=== PATIENT | female | born 1975 | race Caucasian/White ===

== ENCOUNTER → 2017-12-18 | Outpatient (CLI) | payer OTHER ==
--- NOTE | 2017-12-18 09:05 | MM ---
Reason for exam: clinical finding. History: Patient is postmenopausal. Family history of breast cancer in grandmother. Saline implants in both breasts, 2011. Indicated problem(s): pain in the right breast. Physical Findings: Nurse did not find any significant physical abnormalities on exam. MG 3D Diag Mammo Imp W/Cad VERO Bilateral CC, MLO, and ID view(s) were taken. There are scattered fibroglandular densities. No suspicious abnormality. These results were verbally communicated with the patient and result sheet given to the patient on 12/18/17. ASSESSMENT: Negative, BI-RAD 1 RECOMMENDATION: Routine screening mammogram of both breasts in 1 year. Manage patient on a clinical basis.
--- NOTE | 2017-12-18 09:07 | USB ---
Reason for exam: clinical finding. History: Patient is postmenopausal. Family history of breast cancer in grandmother. Saline implants in both breasts, 2011. Indicated problem(s): pain in the right breast. US Breast RT Right breast ultrasound includes all four quadrants, the retroareolar region and axilla. Finding demonstrates no cystic or solid lesion seen greater than 0.50cm. No solid or cystic mass. No suspicious sonographic finding. These results were verbally communicated with the patient and result sheet given to the patient on 12/18/17. ASSESSMENT: Negative, BI-RAD 1 RECOMMENDATION: Routine screening mammogram of both breasts in 1 year. Manage patient on a clinical basis.
== END | disposition home or self-care (01) ==
LOC: RADMAMWWP 07:31
PROVIDERS: ATTEND Family Medicine
DX: N64.4 Mastodynia (principal); N63.10 Unspecified lump in the right breast, unspecified quadrant; Z98.82 Breast implant status
CPT/HCPCS: 77066; 76641; G0279

== ENCOUNTER 2019-08-23 14:13 | Emergency (ER) | payer OTHER ==
[2019-08-23 14:20] VITALS: TEMP 97.9
[2019-08-23] MEDS ORDERED: guaiFENesin-Coden 100-10MG/5ML 10 ML CUP PO STA (14:32)
[2019-08-23] MEDS ORDERED: SODIUM CHLORIDE 0.9% 2,000 ML IV STA (14:32)
[2019-08-23 14:59] LABS: Appearance,Urine Cloudy (Clear); Bacteria,Urine Rare /hpf; Bilirubin,Urine Negative (Negative); Blood,Urine Moderate (Negative); Color,Urine Yellow; Glucose,Urine (UA) Negative (Negative); Hyaline Casts,Urine 1 /lpf (0-2); Ketones,Urine Negative (Negative); Leukocyte Esterase,Urine Negative (Negative); Mucus,Urine Rare /hpf; Nitrite,Urine Negative (Negative); PH, Urine 5.5 (5.0-8.0); Protein,Urine 2+ (Negative); RBC,Urine 7 /hpf (0-5); Specific Gravity,Urine 1.027 (1.001-1.035); Squamous Epithelial Cell,Urine 4 /hpf (0-4); Urobilinogen,Urine <2.0 mg/dL (<2.0)
--- NOTE | 2019-08-23 15:04 | XR ---
EXAMINATION TYPE: XR chest 2V DATE OF EXAM: 08/23/2019 COMPARISON: 11/08/2008 HISTORY: Cough. Possible renal infection. TECHNIQUE: Frontal and lateral views of the chest are obtained. FINDINGS: Very mild interstitial prominence. There is no focal air space opacity, pleural effusion, or pneumothorax seen. The cardiac silhouette size is within normal limits. The osseous structures are intact. Right lower lobe nodular densities are compatible with granulomas on the prior CT of 05/18. Cholecystectomy clips are noted. IMPRESSION: Mild diffuse interstitial prominence can be seen with early interstitial pulmonary edema , atypical pneumonia or the setting of bronchitis.
[2019-08-23 15:05] VITALS: BP 122/91; PULSE 105; RESP 16
[2019-08-23 15:06] LABS: ALT 85 U/L (9-52); AST 85 U/L (14-36); African American GFR (CKD) >90 (>60 ml/min/1.73 sqM); Alkaline Phosphatase 109 U/L (38-126); Amylase 57 U/L (30-110); Anion Gap 9 mmol/L; Blood Urea Nitrogen 9 mg/dL (7-17); Carbon Dioxide 27 mmol/L (22-30); Chloride 104 mmol/L (98-107); Glucose 155 mg/dL (74-99); Non-African American GFR(CKD) >90 (>60 ml/min/1.73 sqM); Potassium 4.1 mmol/L (3.5-5.1); Sodium 140 mmol/L (137-145); Total Bilirubin 0.5 mg/dL (0.2-1.3); Total Protein 7.1 g/dL (6.3-8.2)
[2019-08-23 15:14] LABS: Basophils # (A) 0.2 k/uL (0-0.2); Basophils % (A) 3 %; Eosinophils # (A) 0.1 k/uL (0-0.7); Eosinophils % (A) 1 %; HCT 42.7 % (34.0-46.0); HGB 14.6 gm/dL (11.4-16.0); Lymphocytes # (A) 1.1 k/uL (1.0-4.8); Lymphocytes % (A) 17 %; MCH 30.6 pg (25.0-35.0); MCHC 34.2 g/dL (31.0-37.0); MCV 89.5 fL (80.0-100.0); Mean Platelet Volume 8.1; Monocytes # (A) 0.5 k/uL (0-1.0); Monocytes % (A) 8 %; Neutrophils # (A) 4.6 k/uL (1.3-7.7); Neutrophils % (A) 69 %; Platelet Count 103 k/uL (150-450); RBC 4.78 m/uL (3.80-5.40); RDW 13.1 % (11.5-15.5); WBC 6.7 k/uL (3.8-10.6)
--- NOTE | 2019-08-23 15:26 | ED ---
Abdominal Pain HPI - General Chief Complaint: Abdominal Pain Stated Complaint: possible kidney failure Time Seen by Provider: 08/23/19 14:22 Source: patient, RN notes reviewed Mode of arrival: ambulatory Limitations: no limitations - History of Present Illness Initial Comments: 43-year-old female presents emergency Department chief complaint of generalized not feeling well. She states that she's had a cough and cold over the last week or so. Patient states that her cough is productive. Patient states she just does not feel well. Patient presented to her PCP who performed a urinalysis because she was having bilateral flank pain from coughing they felt that her urine was very foamy, dark and was concerned about her kidney function. Patient was sent here for further evaluation. Patient denies any current nausea vomiting diarrhea constipation. Patient states her worst symptom is cough. - Related Data Previous Rx's Medication Instructions Recorded Azithromycin [Zithromax Z-pack] 0 mg PO DIRECTED #1 pack 08/23/19 predniSONE 50 mg PO DAILY #5 tab 08/23/19 Allergies Allergy/AdvReac Type Severity Reaction Status Date / Time cefaclor [From Ceclor] Allergy Anaphylaxis Verified 08/23/19 14:21 celecoxib [From Celebrex] Allergy Anaphylaxis Verified 08/23/19 14:21 Review of Systems ROS Statement: Those systems with pertinent positive or pertinent negative responses have been documented in the HPI. ROS Other: All systems not noted in ROS Statement are negative. Past Medical History Past Medical History: Diabetes Mellitus History of Any Multi-Drug Resistant Organisms: None Reported Past Surgical History: Cholecystectomy, Hysterectomy, Orthopedic Surgery Past Psychological History: No Psychological Hx Reported Smoking Status: Current every day smoker Past Alcohol Use History: None Reported, Occasional Past Drug Use History: Marijuana General Exam Limitations: no limitations General appearance: alert, in no apparent distress Head exam: Present: atraumatic, normocephalic, normal inspection Eye exam: Present: normal appearance, PERRL, EOMI. Absent: scleral icterus, conjunctival injection, periorbital swelling ENT exam: Present: normal exam, normal oropharynx, mucous membranes moist, TM's normal bilaterally Neck exam: Present: normal inspection, full ROM. Absent: tenderness, meningismus, lymphadenopathy Respiratory exam: Present: rhonchi (Left lower base). Absent: normal lung sounds bilaterally, respiratory distress, wheezes, rales, stridor Cardiovascular Exam: Present: normal rhythm, tachycardia, normal heart sounds. Absent: systolic murmur, diastolic murmur, rubs, gallop, clicks Back exam: Absent: CVA tenderness (R), CVA tenderness (L) Neurological exam: Present: alert, oriented X3, CN II-XII intact Skin exam: Present: warm, dry, intact, normal color. Absent: rash Course Vital Signs 08/23/19 08/23/19 14:18 15:04 Temperature 97.9 F Pulse Rate 114 H 105 H Respiratory 20 16 Rate Blood Pressure 118/80 122/91 O2 Sat by Pulse 99 100 Oximetry Medical Decision Making - Medical Decision Making 43-year-old female presented for cough congestion just shows atypical more respiratory bronchitis. Patient will be started on antibiotics and, steroids. Patient had some dark urine though there no major abnormality other than mild proteinuria. She is advised that she's had this recheck she'll increase her fluid intake and return for any worsening symptoms. - Lab Data Result diagrams: 08/23/19 14:46 08/23/19 14:46 Lab Results 08/23/19 08/23/19 08/23/19 Range/Units 14:46 14:46 14:46 WBC 6.7 (3.8-10.6) k/uL RBC 4.78 (3.80-5.40) m/uL Hgb 14.6 (11.4-16.0) gm/dL Hct 42.7 (34.0-46.0) % MCV 89.5 (80.0-100.0) fL MCH 30.6 (25.0-35.0) pg MCHC 34.2 (31.0-37.0) g/dL RDW 13.1 (11.5-15.5) % Plt Count 103 L (150-450) k/uL Neutrophils % 69 % Lymphocytes % 17 % Monocytes % 8 % Eosinophils % 1 % Basophils % 3 % Neutrophils # 4.6 (1.3-7.7) k/uL Lymphocytes # 1.1 (1.0-4.8) k/uL Monocytes # 0.5 (0-1.0) k/uL Eosinophils # 0.1 (0-0.7) k/uL Basophils # 0.2 (0-0.2) k/uL Sodium 140 (137-145) mmol/L Potassium 4.1 (3.5-5.1) mmol/L Chloride 104 (98-107) mmol/L Carbon Dioxide 27 (22-30) mmol/L Anion Gap 9 mmol/L BUN 9 (7-17) mg/dL Creatinine 0.59 (0.52-1.04) mg/dL Est GFR (CKD-EPI)AfAm >90 (>60 ml/min/1.73 sqM) Est GFR (CKD-EPI)NonAf >90 (>60 ml/min/1.73 sqM) Glucose 155 H (74-99) mg/dL Calcium 9.0 (8.4-10.2) mg/dL Total Bilirubin 0.5 (0.2-1.3) mg/dL AST 85 H (14-36) U/L ALT 85 H (9-52) U/L Alkaline Phosphatase 109 (38-126) U/L Total Protein 7.1 (6.3-8.2) g/dL Albumin 4.0 (3.5-5.0) g/dL Amylase 57 (30-110) U/L Lipase 327 H (23-300) U/L Urine Color Yellow Urine Appearance Cloudy H (Clear) Urine pH 5.5 (5.0-8.0) Ur Specific [place] 1.027 (1.001-1.035) Urine Protein 2+ H (Negative) Urine Glucose (UA) Negative (Negative) Urine Ketones Negative (Negative) Urine Blood Moderate H (Negative) Urine Nitrite Negative (Negative) Urine Bilirubin Negative (Negative) Urine Urobilinogen <2.0 (<2.0) mg/dL Ur Leukocyte Esterase Negative (Negative) Urine RBC 7 H (0-5) /hpf Urine WBC 3 (0-5) /hpf Ur Squamous Epith Cells 4 (0-4) /hpf Urine Bacteria Rare H (None) /hpf Hyaline Casts 1 (0-2) /lpf Urine Mucus Rare H (None) /hpf Disposition Clinical Impression: Pneumonia, Proteinuria Disposition: HOME SELF-CARE Condition: Stable Instructions (If sedation given, give patient instructions): Pneumonia (ED) Additional Instructions: Please return to the Emergency Department if symptoms worsen or any other concerns. Prescriptions: predniSONE 50 mg PO DAILY #5 tab Azithromycin [Zithromax Z-pack] 0 mg PO DIRECTED #1 pack Is patient prescribed a controlled substance at d/c from ED?: No Referrals: Phil Arambula Jr, [Primary Care Provider] - 1-2 days Time of Disposition: 15:40
== END 2019-08-23 16:10 | disposition home or self-care (01) ==
LOC: EC 14:13
DX: J18.9 Pneumonia, unspecified organism (principal); R80.9 Proteinuria, unspecified; E11.9 Type 2 diabetes mellitus without complications; F17.200 Nicotine dependence, unspecified, uncomplicated; Z88.6 Allergy status to analgesic agent; Z90.49 Acquired absence of other specified parts of digestive tract
CPT/HCPCS: 36415; 71046; 80053; 81001; 82150; 83690; 85025; 96360; 99284

== ENCOUNTER 2019-09-03 11:47 | Emergency (ER) | payer OTHER ==
[2019-09-03 11:50] VITALS: TEMP 98.3
--- NOTE | 2019-09-03 12:18 | ED ---
General Adult HPI - General Chief complaint: Shortness of Breath Stated complaint: Chest pain, Poss PE Time Seen by Provider: 09/03/19 12:00 Source: patient, RN notes reviewed Mode of arrival: ambulatory Limitations: no limitations - History of Present Illness Initial comments: 43-year-old female with a past medical history of diabetes presents to the e mergency department for chief commands shortness of breath. Patient states she woke up this morning with shortness of breath and pain on the left side of her chest radiating to her shoulder. Patient states it is painful to take a deep breath. Patient has had a history of PEs in the past secondary to trauma. Patient denies any recent trauma. She does admit to car ride to [place] which is about 2 hours. Patient returned yesterday. Patient denies any previous history of clotting disorders. Patient has no other complaints at this time including abdominal pain, nausea or vomiting, headache, or visual changes. - Related Data Home Medications Medication Instructions Recorded Confirmed DULoxetine HCL [Cymbalta] 30 mg PO BID 09/03/19 09/03/19 HYDROcodone/APAP 10-325MG [[place] 1 tab PO TID PRN 09/03/19 09/03/19 10-325] Ibuprofen [Motrin] 800 mg PO TID PRN 09/03/19 09/03/19 Linagliptin [Tradjenta] 5 mg PO DAILY 09/03/19 09/03/19 Lisinopril [Zestril] 5 mg PO DAILY 09/03/19 09/03/19 metFORMIN HCL 1,000 mg PO BID 09/03/19 09/03/19 Previous Rx's Medication Instructions Recorded Levofloxacin [Levaquin] 750 mg PO DAILY 5 Days #5 tab 09/03/19 Allergies Allergy/AdvReac Type Severity Reaction Status Date / Time cefaclor [From Ceclor] Allergy Anaphylaxis Verified 09/03/19 11:59 celecoxib [From Celebrex] Allergy Anaphylaxis Verified 09/03/19 11:59 Review of Systems ROS Statement: Those systems with pertinent positive or pertinent negative responses have been documented in the HPI. ROS Other: All systems not noted in ROS Statement are negative. Past Medical History Past Medical History: Diabetes Mellitus History of Any Multi-Drug Resistant Organisms: None Reported Past Surgical History: Cholecystectomy, Hysterectomy, Orthopedic Surgery Past Psychological History: No Psychological Hx Reported Smoking Status: Current every day smoker Past Alcohol Use History: None Reported, Occasional Past Drug Use History: Marijuana General Exam Limitations: no limitations General appearance: alert, in no apparent distress Head exam: Present: atraumatic, normocephalic, normal inspection Eye exam: Present: normal appearance, PERRL, EOMI. Absent: scleral icterus, conjunctival injection, periorbital swelling ENT exam: Present: normal exam, mucous membranes moist Neck exam: Present: normal inspection, full ROM. Absent: tenderness, meningismus, lymphadenopathy Respiratory exam: Present: normal lung sounds bilaterally. Absent: respiratory distress, wheezes, rales, rhonchi, stridor Cardiovascular Exam: Present: regular rate, normal rhythm, normal heart sounds. Absent: systolic murmur, diastolic murmur, rubs, gallop, clicks GI/Abdominal exam: Present: soft, normal bowel sounds. Absent: distended, tenderness, guarding, rebound, rigid Course Vital Signs 09/03/19 09/03/19 09/03/19 11:47 13:20 13:26 Temperature 98.3 F Pulse Rate 107 H 87 94 Respiratory 24 20 Rate Blood Pressure 151/95 162/91 O2 Sat by Pulse 97 97 Oximetry 09/03/19 09/03/19 13:33 14:48 Temperature Pulse Rate 96 89 Respiratory 16 Rate Blood Pressure 159/87 O2 Sat by Pulse 96 Oximetry EKG Findings - EKG Comments: EKG Findings:: Normal sinus rhythm, ventricular rate 96, IA interval 132, QTc 427 Medical Decision Making - Medical Decision Making Vitals are stable. Patient is 97% on room air she was initially mildly tachycardic with a heart rate of 107. Patient is complaining of pain with coughing and deep breathing. CBC shows mild leukocytosis. CMP shows a glucose of 377, otherwise unremarkable. Patient was given fluids and insulin for this and this did improve. CT was ordered to rule out PE. This showed no definite pulmonary embolism. There is a focal patchy density superior segment left lower lobe which is a possible pneumonia. Patient was treated outpatient for pneumonia with azithromycin. It is possible that CT results do not reflect patient's improvement of pneumonia given a can take several weeks for pneumonia to resolve on imaging studies. Patient states her cough has improved and she has not had any fevers. Patient's pain likely secondary to pleurisy from pneumonia. Patient was given pain medications and feels much better, only has pain when coughing at this time. Patient will be put on Levaquin. She'll follow up with primary care and return if she has any worsening symptoms. - Lab Data Result diagrams: 09/03/19 12:18 12 12:18 Lab Results 09/03/19 09/03/19 09/03/19 Range/Units 12:18 12:18 12:18 WBC 12.2 H (3.8-10.6) k/uL RBC 4.57 (3.80-5.40) m/uL Hgb 13.8 (11.4-16.0) gm/dL Hct 41.4 (34.0-46.0) % MCV 90.6 (80.0-100.0) fL MCH 30.1 (25.0-35.0) pg MCHC 33.2 (31.0-37.0) g/dL RDW 13.2 (11.5-15.5) % Plt Count 204 (150-450) k/uL Neutrophils % 72 % Lymphocytes % 22 % Monocytes % 3 % Eosinophils % 1 % Basophils % 0 % Neutrophils # 8.8 H (1.3-7.7) k/uL Lymphocytes # 2.7 (1.0-4.8) k/uL Monocytes # 0.4 (0-1.0) k/uL Eosinophils # 0.1 (0-0.7) k/uL Basophils # 0.0 (0-0.2) k/uL PT 9.6 (9.0-12.0) sec INR 0.9 (<1.2) APTT 20.8 L (22.0-30.0) sec Sodium 138 (137-145) mmol/L Potassium 3.8 (3.5-5.1) mmol/L Chloride 106 (98-107) mmol/L Carbon Dioxide 23 (22-30) mmol/L Anion Gap 9 mmol/L BUN 10 (7-17) mg/dL Creatinine 0.46 L (0.52-1.04) mg/dL Est GFR (CKD-EPI)AfAm >90 (>60 ml/min/1.73 sqM) Est GFR (CKD-EPI)NonAf >90 (>60 ml/min/1.73 sqM) Glucose 377 H (74-99) mg/dL POC Glucose (mg/dL) (75-99) mg/dL POC Glu Rink[place] ID Calcium 9.2 (8.4-10.2) mg/dL Magnesium 1.6 (1.6-2.3) mg/dL Total Bilirubin 0.8 (0.2-1.3) mg/dL AST 46 H (14-36) U/L ALT 56 H (9-52) U/L Alkaline Phosphatase 85 (38-126) U/L Troponin I (0.000-0.034) ng/mL NT-Pro-B Natriuret Pep pg/mL Total Protein 6.5 (6.3-8.2) g/dL Albumin 3.8 (3.5-5.0) g/dL 09/03/19 09/03/19 09/03/19 Range/Units 12:18 12:18 14:46 WBC (3.8-10.6) k/uL RBC (3.80-5.40) m/uL Hgb (11.4-16.0) gm/dL Hct (34.0-46.0) % MCV (80.0-100.0) fL MCH (25.0-35.0) pg MCHC (31.0-37.0) g/dL RDW (11.5-15.5) % Plt Count (150-450) k/uL Neutrophils % % Lymphocytes % % Monocytes % % Eosinophils % % Basophils % % Neutrophils # (1.3-7.7) k/uL Lymphocytes # (1.0-4.8) k/uL Monocytes # (0-1.0) k/uL Eosinophils # (0-0.7) k/uL Basophils # (0-0.2) k/uL PT (9.0-12.0) sec INR (<1.2) APTT (22.0-30.0) sec Sodium (137-145) mmol/L Potassium (3.5-5.1) mmol/L Chloride (98-107) mmol/L Carbon Dioxide (22-30) mmol/L Anion Gap mmol/L BUN (7-17) mg/dL Creatinine (0.52-1.04) mg/dL Est GFR (CKD-EPI)AfAm (>60 ml/min/1.73 sqM) Est GFR (CKD-EPI)NonAf (>60 ml/min/1.73 sqM) Glucose (74-99) mg/dL POC Glucose (mg/dL) 224 H (75-99) mg/dL POC Glu Rinkman ID Christy [place] Calcium (8.4-10.2) mg/dL Magnesium (1.6-2.3) mg/dL Total Bilirubin (0.2-1.3) mg/dL AST (14-36) U/L ALT (9-52) U/L Alkaline Phosphatase (38-126) U/L Troponin I <0.012 (0.000-0.034) ng/mL NT-Pro-B Natriuret Pep 239 pg/mL Total Protein (6.3-8.2) g/dL Albumin (3.5-5.0) g/dL Disposition Clinical Impression: Atypical chest pain, Hyperglycemia Disposition: HOME SELF-CARE Condition: Good Instructions (If sedation given, give patient instructions): Pneumonia (ED) Additional Instructions: Take Levaquin as directed. Take Motrin for pain. Pain is severe take Tylenol 3. Please follow up with Dr. Martinez tomorrow. Make sure to talk with Dr. Martinez about CT results as well as high blood sugar. If you have any worsening symptoms return to the emergency department. Prescriptions: Levofloxacin [Levaquin] 750 mg PO DAILY 5 Days #5 tab Is patient prescribed a controlled substance at d/c from ED?: No Referrals: Phil Arambula Jr, DO [Primary Care Provider] - 1-2 days Time of Disposition: 14:57
[2019-09-03] MEDS ORDERED: SODIUM CHLORIDE 0.9% 500 ML 500 ML IV STA ×2 (12:21→12:59)
[2019-09-03 12:42] LABS: Basophils % (A) 0 %; Eosinophils # (A) 0.1 k/uL (0-0.7); Eosinophils % (A) 1 %; HCT 41.4 % (34.0-46.0); HGB 13.8 gm/dL (11.4-16.0); Lymphocytes # (A) 2.7 k/uL (1.0-4.8); Lymphocytes % (A) 22 %; MCH 30.1 pg (25.0-35.0); MCHC 33.2 g/dL (31.0-37.0); MCV 90.6 fL (80.0-100.0); Mean Platelet Volume 7.9; Monocytes # (A) 0.4 k/uL (0-1.0); Monocytes % (A) 3 %; Neutrophils # (A) 8.8 k/uL (1.3-7.7); Neutrophils % (A) 72 %; Platelet Count 204 k/uL (150-450); RBC 4.57 m/uL (3.80-5.40); RDW 13.2 % (11.5-15.5); WBC 12.2 k/uL (3.8-10.6)
[2019-09-03 12:48] LABS: INR 0.9 (<1.2); Prothrombin Time 9.6 sec (9.0-12.0)
[2019-09-03 12:49] LABS: ALT 56 U/L (9-52); AST 46 U/L (14-36); African American GFR (CKD) >90 (>60 ml/min/1.73 sqM); Albumin 3.8 g/dL (3.5-5.0); Alkaline Phosphatase 85 U/L (38-126); Anion Gap 9 mmol/L; Blood Urea Nitrogen 10 mg/dL (7-17); Calcium 9.2 mg/dL (8.4-10.2); Carbon Dioxide 23 mmol/L (22-30); Chloride 106 mmol/L (98-107); Glucose 377 mg/dL (74-99); Magnesium 1.6 mg/dL (1.6-2.3); Non-African American GFR(CKD) >90 (>60 ml/min/1.73 sqM); Potassium 3.8 mmol/L (3.5-5.1); Sodium 138 mmol/L (137-145); Total Bilirubin 0.8 mg/dL (0.2-1.3); Total Protein 6.5 g/dL (6.3-8.2)
--- NOTE | 2019-09-03 12:51 | CT ---
EXAMINATION TYPE: CT chest angio for PE DATE OF EXAM: 09/03/2019 COMPARISON: 05/18/2016 HISTORY: 43-year-old female shortness of breath, chest pain, history of PE. TECHNIQUE: Contiguous axial scanning of the chest performed with IV Contrast, patient injected with 7 9 mL of Isovue 370. Coronal/sagittal MIP reconstructions performed. CT DLP: 886.6 mGycm Automated exposure control for dose reduction was used. FINDINGS: Heart normal size without pericardial effusion. Aorta normal caliber with bovine configuration. Mildly enlarged precarinal lymph node of 1.2 cm. Prominent but nonenlarged 7 mm AP window lymph node, increased from prior exam. Calcified right hilar and subcarinal lymph nodes. Left hilar lymph node m ildly enlarged at 1.2 cm, increased. There is segmental inferior lingular atelectasis. Motion artifacts within the left mid and lower lung . No definite pulmonary embolus is seen. Scattered calcified pulmonary nodules on the right. Mild diffuse bronchial wall thickening. Focal patchy subpleural opacity superior segment left lower lobe, axial image 64. Bilateral breast implants. Calcified granulomas within the spleen. Cholecystectomy clips. Fatty infiltration of the liver given low density. Hilar splenule. Bones: No osseous destructive process. IMPRESSION: 1. BREATHING MOTION ARTIFACTS. NO DEFINITE PULMONARY EMBOLUS. 2. FOCAL PATCHY DENSITY SUPERIOR SEGMENT LEFT LOWER LOBE. CORRELATE FOR POSSIBLE PNEUMONIA. 3. INCREASING SIZE OF MEDIASTINAL AND LEFT HILAR LYMPH NODES MEASURING UP TO 1.2 CM CURRENTLY. PROBAB LY REACTIVE/POST INFLAMMATORY. SIX-MONTH FOLLOW-UP CONTRAST ENHANCED CT TO ENSURE RESOLUTION. 4. MILD DIFFUSE BRONCHIAL WALL THICKENING SUGGESTS BRONCHITIS OR ASTHMA. PARTIAL INFERIOR LINGULAR A TELECTASIS. 5. PRIOR GRANULOMATOUS DISEASE. 6. HEPATIC STEATOSIS.
[2019-09-03] MEDS ORDERED: IPRATROPIUM-ALBUTEROL 3 ML NEB INHALATION STA (12:54)
[2019-09-03] MEDS ORDERED: SODIUM CHLORIDE 0.9% 1,000 ML IV STA (12:56)
[2019-09-03] MEDS ORDERED: INSULIN ASPART (NovoLOG) 100 UNIT/ML VIAL SQ STA ×2 (12:57→13:01)
[2019-09-03] MEDS ORDERED: INSULIN ASPART (NovoLOG) 100 UNIT/ML VIAL SQ ONE (13:01)
[2019-09-03 13:02] LABS: Partial Thromboplastin Time 20.8 sec (22.0-30.0)
[2019-09-03] MEDS ORDERED: MORPHINE SULFATE 4 MG/ML SYRINGE IVP STA (13:44)
[2019-09-03] MEDS ORDERED: KETOROLAC 30 MG/ML 1 ML VIAL IVP STA (13:45)
[2019-09-03 14:49] VITALS: RESP 16
[2019-09-03 14:55] LABS: Glucose,Whole Blood 224 mg/dL (75-99)
[2019-09-03] MEDS ORDERED: ACET/COD 300 MG/30 MG STARTER PACK 6 TAB BTL PO STA (14:58)
[2019-09-03] MEDS ORDERED: LEVOFLOXACIN 750 MG TAB PO STA (14:58)
[2019-09-03 15:19] VITALS: BP 135/76; PULSE 81
== END 2019-09-03 15:17 | disposition home or self-care (01) ==
LOC: EC 11:47
DX: R07.89 Other chest pain (principal); E11.65 Type 2 diabetes mellitus with hyperglycemia; D72.829 Elevated white blood cell count, unspecified; R05 Cough; F17.200 Nicotine dependence, unspecified, uncomplicated; Z79.84 Long term (current) use of oral hypoglycemic drugs; Z79.899 Other long term (current) drug therapy; Z88.1 Allergy status to other antibiotic agents; Z88.6 Allergy status to analgesic agent; Z53.8 Procedure and treatment not carried out for other reasons
CPT/HCPCS: 36415; 71275; 80053; 83735; 83880; 84484; 85025; 85610; 85730; 93005; 94640; 96361; 96374; 96375; 99285

== ENCOUNTER → 2019-09-10 | Outpatient (CLI) | payer OTHER ==
--- NOTE | 2019-09-10 15:40 | US ---
EXAMINATION TYPE: US kidneys/renal and bladder DATE OF EXAM: 09/10/2019 COMPARISON: NONE CLINICAL HISTORY: R31.9 Hematuria E11.9 R80.9. proteinuria, microscopic hematuria EXAM MEASUREMENTS: Right Kidney: 10.9 x 4.8 x 4.9 cm Left Kidney: 10.2 x 4.1 x 5.3 cm known horseshoe kidney Right Kidney: No hydronephrosis or masses seen Left Kidney: No hydronephrosis or masses seen Bladder: wnl Bilateral Jets seen: yes There is no evidence for hydronephrosis at this point in time. No nephrolithiasis is seen. No shellie s are identified. The urinary bladder is anechoic. Bilateral ureteral jets are seen. IMPRESSION: No acute process. Findings compatible with patient's history of known horseshoe kidney.
== END | disposition home or self-care (01) ==
LOC: RADUSWWP 14:51
PROVIDERS: ATTEND Family Medicine
DX: R31.9 Hematuria, unspecified (principal); E11.9 Type 2 diabetes mellitus without complications; R80.9 Proteinuria, unspecified; Z88.1 Allergy status to other antibiotic agents; Z88.8 Allergy status to other drugs, medicaments and biological substances
CPT/HCPCS: 76770

== ENCOUNTER 2020-09-12 00:28 | Emergency (ER) | payer OTHER ==
[2020-09-12 00:34] VITALS: BP 177/121; PULSE 95; RESP 18; TEMP 98.6
--- NOTE | 2020-09-12 00:37 | ED ---
ENT HPI - General Chief complaint: ENT Stated complaint: Tooth ache Time Seen by Provider: 09/12/20 00:36 Source: patient Mode of arrival: ambulatory Limitations: no limitations - History of Present Illness Initial comments: 45-year-old female presenting to the emergency department chief complaint of dental pain. Patient states she had a filling that fell out from a tooth in the left upper region. Patient states the pain is sharp and occurred earlier in the day. She really has an appointment at 11 AM tomorrow to see a dentist. States she took Tylenol and Motrin with no improvement in symptoms. Patient is requesting dental block. - Related Data Home Medications Medication Instructions Recorded Confirmed DULoxetine HCL [Cymbalta] 30 mg PO BID 09/03/19 09/03/19 HYDROcodone/APAP 10-325MG [[place] 1 tab PO TID PRN 09/03/19 09/03/19 10-325] Ibuprofen [Motrin] 800 mg PO TID PRN 09/03/19 09/03/19 Linagliptin [Tradjenta] 5 mg PO DAILY 09/03/19 09/03/19 lisinopriL [Zestril] 5 mg PO DAILY 09/03/19 09/03/19 metFORMIN HCL 1,000 mg PO BID 09/03/19 09/03/19 Previous Rx's Medication Instructions Recorded Levofloxacin [Levaquin] 750 mg PO DAILY 5 Days #5 tab 09/03/19 Allergies Allergy/AdvReac Type Severity Reaction Status Date / Time cefaclor [From Ceclor] Allergy Anaphylaxis Verified 09/03/19 11:59 celecoxib [From Celebrex] Allergy Anaphylaxis Verified 09/03/19 11:59 nortriptyline [From Pamelor] Allergy Unknown Verified 09/12/20 00:34 Review of Systems ROS Statement: Those systems with pertinent positive or pertinent negative responses have been documented in the HPI. ROS Other: All systems not noted in ROS Statement are negative. Past Medical History Past Medical History: Diabetes Mellitus, Hypertension History of Any Multi-Drug Resistant Organisms: None Reported Past Surgical History: Cholecystectomy, Hysterectomy, Orthopedic Surgery Past Psychological History: No Psychological Hx Reported Smoking Status: Current every day smoker Past Alcohol Use History: Rare Past Drug Use History: Marijuana General Exam Limitations: no limitations General appearance: alert, in no apparent distress Head exam: Present: atraumatic, normocephalic, normal inspection Eye exam: Present: normal appearance, PERRL, EOMI Pupils: Present: normal accommodation ENT exam: Present: normal exam, mucous membranes moist, TM's normal bilaterally, normal external ear exam. Absent: normal oropharynx (Tooth #14 missing dental filling. No signs of an dental abscess.) Neck exam: Present: normal inspection, full ROM. Absent: tenderness Respiratory exam: Present: normal lung sounds bilaterally. Absent: respiratory distress, wheezes, rales Cardiovascular Exam: Present: regular rate, normal rhythm, normal heart sounds Extremities exam: Present: normal inspection, full ROM, normal capillary refill. Absent: tenderness, pedal edema, joint swelling Back exam: Present: normal inspection, full ROM. Absent: tenderness, CVA tenderness (R), CVA tenderness (L) Neurological exam: Present: alert, oriented X3 Psychiatric exam: Present: normal affect, normal mood Skin exam: Present: warm, dry, intact, normal color Course Vital Signs 09/12/20 00:31 Temperature 98.6 F Pulse Rate 95 Respiratory 18 Rate Blood Pressure 177/121 O2 Sat by Pulse 99 Oximetry Procedures - Nerve Block Consent Obtained: verbal consent Local Anesthetic Used: Marcaine 0.5% Amount of anesthesia used: 3 Side: left Intraoral Nerve Block: superior alveolar Procedure Successful: Yes Complications: none Patient Tolerated Procedure: well, no complications Medical Decision Making - Medical Decision Making 45-year-old female presenting to emergency Department with chief complaint of dental pain. Patient was given a posterior superior alveolar dental block. This was successful. Patient reports improvement of symptoms. This was performed with 3 mL of Marcaine. Patient has an appointment in the morning with a dentist. Return parameters discussed. Case discussed physician. Disposition Clinical Impression: Pain, dental Disposition: HOME SELF-CARE Condition: Stable Instructions (If sedation given, give patient instructions): Toothache (ED) Additional Instructions: Follow-up with a dentist Is patient prescribed a controlled substance at d/c from ED?: No Referrals: Phil Arambula Jr, DO [Primary Care Provider] - 1-2 days Time of Disposition: 01:37
[2020-09-12] MEDS ORDERED: BUPIVACAINE (PF) 0.5% 30 ML VIAL SQ STA (00:57)
== END 2020-09-12 01:59 | disposition home or self-care (01) ==
LOC: EC 00:28
DX: K08.89 Other specified disorders of teeth and supporting structures (principal); E11.9 Type 2 diabetes mellitus without complications; I10 Essential (primary) hypertension; F17.200 Nicotine dependence, unspecified, uncomplicated; Z79.84 Long term (current) use of oral hypoglycemic drugs; Z79.899 Other long term (current) drug therapy; Z88.1 Allergy status to other antibiotic agents; Z88.6 Allergy status to analgesic agent; Z88.8 Allergy status to other drugs, medicaments and biological substances; Z90.49 Acquired absence of other specified parts of digestive tract; Z90.710 Acquired absence of both cervix and uterus
CPT/HCPCS: 64400; 99282

== ENCOUNTER 2021-01-21 13:38 | Observation (INO) | payer OTHER ==
[2021-01-21] MEDS ORDERED: ASPIRIN 81 MG PO STA (13:55)
[2021-01-21] MEDS ORDERED: NITROGLYCERIN OINT 1 INCH/GM PACKET TOPICAL STA (13:55)
--- NOTE | 2021-01-21 14:29 | ED ---
General Adult HPI - General Chief complaint: Chest Pain Stated complaint: chest pain, pain in jaw and neck Time Seen by Provider: 01/21/21 13:45 Source: patient, RN notes reviewed, old records reviewed Mode of arrival: wheelchair Limitations: no limitations - History of Present Illness Initial comments: This is a 45-year-old female presents emergency Department with a past medical history significant for diabetes hypertension and high cholesterol. Patient states she's also current smoker. Patient also states she has an extensive cardiac history in her family. Patient states she started having chest pain and becoming short of breath. Patient states the pain radiates up to her left shoulder and into her jaw. Patient states the pain started when she woke up this morning. Patient denies any diaphoretic episodes. Patient denies any nausea. Patient denies any abdominal pain patient denies nausea vomiting diarrhea per patient denies any leg swelling or calf tenderness. Patient denies any back pain. Patient denies any recent fever chills or cough. - Related Data Home Medications Medication Instructions Recorded Confirmed DULoxetine HCL [Cymbalta] 30 mg PO BID 09/03/19 01/21/21 HYDROcodone/APAP 10-325MG [[place] 1 tab PO Q8H PRN 09/03/19 01/21/21 10-325] Ibuprofen [Motrin] 800 mg PO TID PRN 09/03/19 01/21/21 Linagliptin [Tradjenta] 5 mg PO DAILY 09/03/19 01/21/21 metFORMIN HCL 1,000 mg PO BID 09/03/19 01/21/21 Lisinopril [Prinivil] 10 mg PO DAILY 01/21/21 01/21/21 Allergies Allergy/AdvReac Type Severity Reaction Status Date / Time cefaclor [From Ceclor] Allergy Anaphylaxis Verified 01/21/21 14:44 celecoxib [From Celebrex] Allergy Anaphylaxis Verified 01/21/21 14:44 nortriptyline [From Pamelor] Allergy Anaphylaxis Verified 01/21/21 14:44 Review of Systems ROS Statement: Those systems with pertinent positive or pertinent negative responses have been documented in the HPI. ROS Other: All systems not noted in ROS Statement are negative. Past Medical History Past Medical History: Diabetes Mellitus, Hypertension History of Any Multi-Drug Resistant Organisms: None Reported Past Surgical History: Cholecystectomy, Hysterectomy, Orthopedic Surgery Past Psychological History: No Psychological Hx Reported Smoking Status: Current every day smoker Past Alcohol Use History: Rare Past Drug Use History: Marijuana General Exam - General Exam Comments Initial Comments: GENERAL: Patient is well-developed and well-nourished. Patient is nontoxic and well- hydrated and is in mild distress. ENT: Neck is soft and supple. No significant lymphadenopathy is noted. Oropharynx is clear. Moist mucous membranes. Neck has full range of motion without eliciting any pain. EYES: The sclera were anicteric and conjunctiva were pink and moist. Extraocular movements were intact and pupils were equal round and reactive to light. Eyelids were unremarkable. PULMONARY: Unlabored respirations. Good breath sounds bilaterally. No audible rales rhonchi or wheezing was noted. CARDIOVASCULAR: There is a regular rate and rhythm without any murmurs gallops or rubs. ABDOMEN: Soft and nontender with normal bowel sounds. SKIN: Skin is clear with no lesions or rashes and otherwise unremarkable. NEUROLOGIC: Patient is alert and oriented x3. Cranial nerves II through XII are grossly intact. Motor and sensory are also intact. Normal speech, volume and content. Symmetrical smile. MUSCULOSKELETAL: Normal extremities with adequate strength and full range of motion. No calf tenderness no edema. LYMPHATICS: No significant lymphadenopathy is noted PSYCHIATRIC: Normal psychiatric evaluation. Limitations: no limitations Course Vital Signs 01/21/21 01/21/21 01/21/21 13:43 14:55 16:20 Temperature 97.9 F Pulse Rate 93 95 Respiratory 18 16 Rate Blood Pressure 147/93 149/99 125/79 O2 Sat by Pulse 98 96 Oximetry Medical Decision Making - Medical Decision Making EKG shows normal sinus rhythm at 87 bpm NE interval is on a 38 year 78 QT interval 360 QTC is 433. Patient's EKG shows no ST segment elevation or depression. Chest x-ray shows no acute abnormality. CT of the chest was ordered because of an elevated d-dimer showed no pulmonary embolism or any acute process in the cardiothoracic area. I suggest the patient stay I told her that was my medical opinion patient refused she stated she wanted to go home because her daughter was leaving, she wouldn't be eliciting much of her. I spoke with Dr. Arambula he was in agreement with seeing the patient tomorrow morning. After patient said she was clinical examination she decided to stay I called Dr. Singh a second time he agreed to admit the patient. I put the patient on heparin I consult cardiology I wrote admitting orders - Lab Data Result diagrams: 01/21/21 14:16 01/21/21 14:16 Lab Results 01/21/21 01/21/21 01/21/21 Range/Units 14:16 14:16 14:16 WBC 9.4 (3.8-10.6) k/uL RBC 4.80 (3.80-5.40) m/uL Hgb 14.6 (11.4-16.0) gm/dL Hct 43.1 (34.0-46.0) % MCV 89.8 (80.0-100.0) fL MCH 30.4 (25.0-35.0) pg MCHC 33.9 (31.0-37.0) g/dL RDW 13.7 (11.5-15.5) % Plt Count 140 L (150-450) k/uL MPV 9.9 Neutrophils % 59 % Lymphocytes % 31 % Monocytes % 7 % Eosinophils % 2 % Basophils % 1 % Neutrophils # 5.6 (1.3-7.7) k/uL Lymphocytes # 2.9 (1.0-4.8) k/uL Monocytes # 0.6 (0-1.0) k/uL Eosinophils # 0.2 (0-0.7) k/uL Basophils # 0.1 (0-0.2) k/uL PT 9.9 (9.0-12.0) sec INR 0.9 (<1.2) APTT 22.0 (22.0-30.0) sec D-Dimer (<0.60) mg/L FEU Sodium 137 (137-145) mmol/L Potassium 4.2 (3.5-5.1) mmol/L Chloride 103 (98-107) mmol/L Carbon Dioxide 24 (22-30) mmol/L Anion Gap 10 mmol/L BUN 12 (7-17) mg/dL Creatinine 0.52 (0.52-1.04) mg/dL Est GFR (CKD-EPI)AfAm >90 (>60 ml/min/1.73 sqM) Est GFR (CKD-EPI)NonAf >90 (>60 ml/min/1.73 sqM) Glucose 234 H (74-99) mg/dL Calcium 9.4 (8.4-10.2) mg/dL Magnesium 1.7 (1.6-2.3) mg/dL Total Bilirubin 0.7 (0.2-1.3) mg/dL AST 39 H (14-36) U/L ALT 38 H (4-34) U/L Alkaline Phosphatase 83 (38-126) U/L Troponin I (0.000-0.034) ng/mL Total Protein 7.0 (6.3-8.2) g/dL Albumin 4.1 (3.5-5.0) g/dL Coronavirus (PCR) (Not Detectd) 01/21/21 01/21/21 01/21/21 Range/Units 14:16 14:16 14:52 WBC (3.8-10.6) k/uL RBC (3.80-5.40) m/uL Hgb (11.4-16.0) gm/dL Hct (34.0-46.0) % MCV (80.0-100.0) fL MCH (25.0-35.0) pg MCHC (31.0-37.0) g/dL RDW (11.5-15.5) % Plt Count (150-450) k/uL MPV Neutrophils % % Lymphocytes % % Monocytes % % Eosinophils % % Basophils % % Neutrophils # (1.3-7.7) k/uL Lymphocytes # (1.0-4.8) k/uL Monocytes # (0-1.0) k/uL Eosinophils # (0-0.7) k/uL Basophils # (0-0.2) k/uL PT (9.0-12.0) sec INR (<1.2) APTT (22.0-30.0) sec D-Dimer 1.29 H (<0.60) mg/L FEU Sodium (137-145) mmol/L Potassium (3.5-5.1) mmol/L Chloride (98-107) mmol/L Carbon Dioxide (22-30) mmol/L Anion Gap mmol/L BUN (7-17) mg/dL Creatinine (0.52-1.04) mg/dL Est GFR (CKD-EPI)AfAm (>60 ml/min/1.73 sqM) Est GFR (CKD-EPI)NonAf (>60 ml/min/1.73 sqM) Glucose (74-99) mg/dL Calcium (8.4-10.2) mg/dL Magnesium (1.6-2.3) mg/dL Total Bilirubin (0.2-1.3) mg/dL AST (14-36) U/L ALT (4-34) U/L Alkaline Phosphatase (38-126) U/L Troponin I <0.012 (0.000-0.034) ng/mL Total Protein (6.3-8.2) g/dL Albumin (3.5-5.0) g/dL Coronavirus (PCR) Not Detected (Not Detectd) Critical Care Time Critical Care Time: Yes Total Critical Care Time: 35 Disposition Clinical Impression: Unstable angina Disposition: ADMITTED IP TO THIS HOSP Referrals: Phil Arambula Jr, [Primary Care Provider] - 1-2 days Time of Disposition: 18:18
[2021-01-21 14:56] LABS: INR 0.9 (<1.2); Prothrombin Time 9.9 sec (9.0-12.0)
[2021-01-21 14:57] LABS: ALT 38 U/L (4-34); AST 39 U/L (14-36); African American GFR (CKD) >90 (>60 ml/min/1.73 sqM); Albumin 4.1 g/dL (3.5-5.0); Alkaline Phosphatase 83 U/L (38-126); Anion Gap 10 mmol/L; Blood Urea Nitrogen 12 mg/dL (7-17); Calcium 9.4 mg/dL (8.4-10.2); Carbon Dioxide 24 mmol/L (22-30); Chloride 103 mmol/L (98-107); Glucose 234 mg/dL (74-99); Magnesium 1.7 mg/dL (1.6-2.3); Non-African American GFR(CKD) >90 (>60 ml/min/1.73 sqM); Sodium 137 mmol/L (137-145); Total Bilirubin 0.7 mg/dL (0.2-1.3)
[2021-01-21 15:04] LABS: Basophils # (A) 0.1 k/uL (0-0.2); Basophils % (A) 1 %; Eosinophils # (A) 0.2 k/uL (0-0.7); Eosinophils % (A) 2 %; HCT 43.1 % (34.0-46.0); HGB 14.6 gm/dL (11.4-16.0); Lymphocytes # (A) 2.9 k/uL (1.0-4.8); Lymphocytes % (A) 31 %; MCH 30.4 pg (25.0-35.0); MCHC 33.9 g/dL (31.0-37.0); MCV 89.8 fL (80.0-100.0); Mean Platelet Volume 9.9; Monocytes # (A) 0.6 k/uL (0-1.0); Monocytes % (A) 7 %; Neutrophils # (A) 5.6 k/uL (1.3-7.7); Neutrophils % (A) 59 %; Platelet Count 140 k/uL (150-450); RDW 13.7 % (11.5-15.5); WBC 9.4 k/uL (3.8-10.6)
[2021-01-21 15:13] LABS: Potassium 4.2 mmol/L (3.5-5.1)
--- NOTE | 2021-01-21 16:45 | XR ---
EXAMINATION TYPE: XR chest 2V DATE OF EXAM: 01/21/2021 CLINICAL HISTORY: Chest Pain. TECHNIQUE: Frontal and lateral view of the chest. COMPARISON: 07/23/2019 FINDINGS: The cardiomediastinal silhouette is within normal limits for size. Pulmonary vasculature i s normal. There is redemonstrated interstitial coarsening similar to 2019 comparison. There is no foc al air space opacity. No pleural effusion. No pneumothorax seen. No acute displaced osseous fracture . IMPRESSION: Unchanged mild interstitial coarsening versus 2019 comparison. No new acute cardiopulmonary process.
--- NOTE | 2021-01-21 18:14 | CT ---
EXAMINATION TYPE: CT chest angio for PE DATE OF EXAM: 01/21/2021 COMPARISON: Same day chest radiograph. CTA chest 09/03/2019 HISTORY: Elevated d-dimer. Chest tightness radiating to neck. History of PE. CT DLP: 577 mGycm Automated exposure control for dose reduction was used. CONTRAST: CT Chest for pulmonary embolism performed with with IV Contrast, patient injected with 100 mL of Isov ue 370. FINDINGS: LUNGS: Calcified granuloma of the right lower lobe and right upper lobe. No focal airspace opacity. T here is no pleural effusion or pneumothorax seen. The tracheobronchial tree is patent. MEDIASTINUM: There is satisfactory enhancement of the pulmonary artery and its branches, there is no CT evidence for pulmonary embolism. There are no greater than 1 cm hilar or mediastinal lymph nodes. Calcified mediastinal and hilar lymph nodes most likely represent old granulomatous disease. Cardiac size normal. No pericardial effusion is seen. Thoracic aorta is normal in caliber with no evidence of aneurysm or dissection. OTHER: Calcified granulomas of the spleen. Degenerative changes of the spine. Bilateral breast impla nts. IMPRESSION: 1. No evidence of pulmonary embolus. 2. No acute cardiothoracic process.
[2021-01-21] MEDS ORDERED: HEPARIN SODIUM 1,000 UN/ML (10ML VL) IV STA (18:24)
[2021-01-21] MEDS ORDERED: NITROGLYCERIN SL TABS 0.4 MG TAB SUBLINGUAL PRN (18:27)
[2021-01-21] MEDS ORDERED: HEPARIN SOD,PORK IN 0.45% NACL 25,000 UNIT in 0.45% NACL 1 250ML.BAG IV SCH (18:30)
[2021-01-21] MEDS ORDERED: IBUPROFEN 600 MG TAB PO STA (19:00)
[2021-01-21 19:56] LABS: Glucose,Whole Blood 130 mg/dL (75-99)
[2021-01-21] MEDS ORDERED: ACETAMINOPHEN TAB 325 MG TAB PO PRN (21:43)
[2021-01-21] MEDS: DULoxetine HCL 30 MG CAPSULE.DR PO SCH (22:19)
[2021-01-21] MEDS: HYDROcodone/APAP 10-325MG 1 EACH TAB PO PRN (22:27)
[2021-01-22] MEDS: NITROGLYCERIN OINT 1 INCH/GM PACKET TOPICAL SCH ×3 (00:40→09:48)
[2021-01-22] MEDS ORDERED: HEPARIN SODIUM 1,000 UN/ML (10ML VL) IV PRN (01:10)
[2021-01-22 07:08] LABS: Glucose,Whole Blood 166 mg/dL (75-99)
[2021-01-22 07:55] VITALS: BP 129/74; PULSE 78; RESP 18; TEMP 98.2
[2021-01-22 08:15] LABS: Cholesterol 236 mg/dL (<200); HDL Cholesterol 44 mg/dL (40-60); LDL Cholesterol,Calculated 161 mg/dL (0-99); Triglycerides 153 mg/dL (<150)
[2021-01-22] MEDS: DULoxetine HCL 30 MG CAPSULE.DR PO SCH (08:53)
[2021-01-22] MEDS ORDERED: ASPIRIN 325 MG TAB PO SCH (09:00)
[2021-01-22] MEDS ORDERED: metFORMIN 500 MG TAB PO SCH (09:00)
[2021-01-22] MEDS ORDERED: lisinopriL 10 MG TAB PO SCH (09:00)
[2021-01-22] MEDS ORDERED: LINAGLIPTIN 5 MG TABLET PO SCH (09:00)
[2021-01-22] MEDS ORDERED: PANTOPRAZOLE 40 MG/10 ML VIAL IVP SCH (09:00)
[2021-01-22] MEDS: HYDROcodone/APAP 10-325MG 1 EACH TAB PO PRN (09:33)
--- NOTE | 2021-01-22 10:35 | P.CRDCN ---
History of Present Illness History of present illness: HISTORY OF PRESENTING ILLNESS This is a pleasant 45-year-old female past medical history significant for Type 2 Diabetes and Hypertension. 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 We have been asked to see in consultation for chest pain. Patient is seen and examined at bedside not apparent distress. Patient was at work yesterday morning, starting having Left sided chest pain, radiating to jaw with activity. The pain feels like tightness and a pressure. It lasted less than 5 minutes. She recently received the [employer] covid-19 vaccine 2 weeks ago. She has associated shortness of breath and some lightheadedness. She denies palpitations, syncope, fatigue, nausea, or diaphoresies. She is a current smoker. She has a significant family cardiac disease Mother has had multiple MIs first one in her 40s, Father of an ND in his 60s. She denies ever having a cardiac workup before. Current home cardiac medications include Lisinopril 10mg daily. DIAGNOSTICS EKG reveals sinus rhythm, heart rate 87, no significant STT wave abnormalities, prior EKG in 2019 look similar. Telemetry tracings indicate sinus mechanism HR 70-90s. Chest xray demonstrated interstitial coarsening similar to 2019 chest x-ray no acute cardiopulmonary process CT chest negative for pulmonary embolism, calcified granuloma the right lower lobe and right upper lobe. Calcified granulomas of the spleen. Laboratory reviewed, d-dimer 1.29, CBC mostly unremarkable, platelets 140, troponin negative 3, AST 39, ALD 38, sodium 137, potassium 4.2, renal function within normal limits serum creatinine 0.52, BUN 12 magnesium 1.7, covid-19 PCR negative REVIEW OF SYSTEMS At the time of my exam: CONSTITUTIONAL: Denies fever or chills. CARDIOVASCULAR: +chest pain, + shortness of breath Denies orthopnea, PND or palpitations. RESPIRATORY: Denies cough. GASTROINTESTINAL: Denies abdominal pain, diarrhea, constipation, nausea or vomiting. MUSCULOSKELETAL: Denies myalgias. NEUROLOGIC: Denies numbness, tingling, headacbe or weakness. ENDOCRINE: Denies fatigue, weight change, polydipsia or polyurina. GENITOURINARY: Denies burning, hematuria or urgency with micturation. HEMATOLOGIC: Denies history of anemia or bleeding. PHYSICAL EXAMINATION Blood pressure 129/74 heart rate 78 afebrile and maintaining oxygen saturation 97% on room air CONSTITUTIONAL: No apparent distress. HEENT: Head is normocephalic. Pupils are equal, round. Sclerae anicteric. Mucous membranes of the mouth are moist. No JVD. No carotid bruit. CHEST EXAMINATION: Lungs are clear to auscultation. No chest wall tenderness is noted on palpation or with deep breathing. HEART EXAMINATION: Regular rate and rhythm. S1, S2 heard. No murmurs, gallops or rub. ABDOMEN: Soft, nontender. Positive bowel sounds. EXTREMITIES: 2+ peripheral pulses, no lower extremity edema and no calf tenderness. SKIN: intact, no bruising or rashes noted NEUROLOGIC EXAMINATION: Patient is awake, alert and oriented x3. ASSESSMENT Chest pain, atypical, acute coronary syndrome has been ruled out. Current 10 year ASCVD Risk 13.3%, lifetime ASCVD risk 50% Type 2 Diabetes Hypertension Significant family history of cardiac disease PLAN An acute coronary event has been ruled out with no EKG evidence of ischemia and negative cardiac enzymes. Obtain 2D echocardiogram and doppler study to assess cardiac structure and function. Perform exercise stress test to assess for stress induced cardiac ischemia. If echocardiogram with no acute findings and stress test normal ok to discharge patient from cardiology perspective and follow up outpatient. If abnormal will consider coronary angiography. Smoking cessation discussed and highly recommended. Follow up with Dr. Echavarria Nurse Practitioner note has been reviewed, I agree with a documented findings and plan of care. Patient was seen and examined. Past Medical History Past Medical History: Diabetes Mellitus, Hypertension History of Any Multi-Drug Resistant Organisms: None Reported Past Surgical History: Cholecystectomy, Hysterectomy, Orthopedic Surgery Past Psychological History: No Psychological Hx Reported Smoking Status: Current every day smoker Past Alcohol Use History: Rare Past Drug Use History: Marijuana Medications and Allergies Home Medications Medication Instructions Recorded Confirmed Type DULoxetine HCL [Cymbalta] 30 mg PO BID 09/03/19 01/21/21 History HYDROcodone/APAP 10-325MG [[place] 1 tab PO Q8H PRN 09/03/19 01/21/21 History 10-325] Ibuprofen [Motrin] 800 mg PO TID PRN 09/03/19 01/21/21 History Linagliptin [Tradjenta] 5 mg PO DAILY 09/03/19 01/21/21 History metFORMIN HCL 1,000 mg PO BID 09/03/19 01/21/21 History Lisinopril [Prinivil] 10 mg PO DAILY 01/21/21 01/21/21 History Allergies Allergy/AdvReac Type Severity Reaction Status Date / Time cefaclor [From Ceclor] Allergy Anaphylaxis Verified 01/21/21 14:44 celecoxib [From Celebrex] Allergy Anaphylaxis Verified 01/21/21 14:44 nortriptyline [From Pamelor] Allergy Anaphylaxis Verified 01/21/21 14:44 Physical Exam Vitals: Vital Signs Temp Pulse Pulse Resp BP BP Pulse Ox 01/22/21 02:00 98.1 F 54 L 16 135/71 99 01/21/21 20:00 98.2 F 85 16 166/96 97 01/21/21 19:09 85 16 130/90 96 01/21/21 18:27 93 18 109/72 96 01/21/21 16:20 95 16 125/79 96 01/21/21 14:55 149/99 01/21/21 13:43 97.9 F 93 18 147/93 98 Intake and Output 01/21/21 01/22/21 01/22/21 22:59 06:59 14:59 Intake Total 62.535 Balance 62.535 Intake: Intake, IV Titration 62.535 Amount Heparin Sod,Pork in 0.45% 62.535 NaCl 25,000 unit In 0.45 % NaCl 1 250ml.bag @ 11 UNITS/KG/HR 9.979 mls/hr IV .Q24H [facility] Rx#: [id number] Other: Voiding Method Toilet Toilet # Voids 2 2 Weight 90.718 kg Results 01/21/21 14:16 01/21/21 14:16 Cardiac Enzymes 01/21/21 01/21/21 01/21/21 Range/Units 14:16 14:16 18:35 AST 39 H (14-36) U/L Troponin I <0.012 <0.012 (0.000-0.034) ng/mL 01/21/21 Range/Units 21:05 AST (14-36) U/L Troponin I <0.012 (0.000-0.034) ng/mL Coagulation 01/21/21 01/22/21 Range/Units 14:16 00:30 PT 9.9 (9.0-12.0) sec APTT 22.0 26.5 (22.0-30.0) sec CBC 01/21/21 Range/Units 14:16 WBC 9.4 (3.8-10.6) k/uL RBC 4.80 (3.80-5.40) m/uL Hgb 14.6 (11.4-16.0) gm/dL Hct 43.1 (34.0-46.0) % Plt Count 140 L (150-450) k/uL Comprehensive Metabolic Panel 01/21/21 Range/Units 14:16 Sodium 137 (137-145) mmol/L Potassium 4.2 (3.5-5.1) mmol/L Chloride 103 (98-107) mmol/L Carbon Dioxide 24 (22-30) mmol/L BUN 12 (7-17) mg/dL Creatinine 0.52 (0.52-1.04) mg/dL Glucose 234 H (74-99) mg/dL Calcium 9.4 (8.4-10.2) mg/dL AST 39 H (14-36) U/L ALT 38 H (4-34) U/L Alkaline Phosphatase 83 (38-126) U/L Total Protein 7.0 (6.3-8.2) g/dL Albumin 4.1 (3.5-5.0) g/dL Current Medications Generic Name Dose Route Start Last Admin Trade Name Freq PRN Reason Stop Dose Admin Acetaminophen 650 mg 01/21/21 21:43 Acetaminophen Tab 325 Mg Tab PO Q6HR PRN Fever and/ or Pain Hydrocodone Bitart/Acetaminophen 1 each 01/21/21 22:20 01/21/21 22:27 Hydrocodone/Apap 10-325mg 1 Each Tab PO 1 each Q8H PRN Administration Pain Aspirin 325 mg 01/22/21 09:00 Aspirin 325 Mg Tab PO DAILY [facility] Duloxetine HCl 30 mg 01/21/21 21:45 01/21/21 22:19 Duloxetine Hcl 30 Mg Capsule. PO 30 mg BID FRANCISCO JAVIER Administration Heparin Sodium (Porcine) 0 unit 01/22/21 01:10 01/22/21 01:17 Heparin Sodium 1,000 Un/Ml (10ml Vl) IV 4,000 unit PER PROTOCOL PRN Administration Low PTT Protocol Heparin Sodium/Sodium Chloride 250 mls @ 9.979 mls/hr 01/21/21 18:30 01/22/21 01:13 25,000 unit/ Sodium Chloride IV 14 units/kg/hr .Q24H FRANCISCO JAVIER 12.701 mls/hr Titration Protocol 11 UNITS/KG/HR Linagliptin 5 mg 01/22/21 09:00 Linagliptin 5 Mg Tablet PO DAILY [facility] Lisinopril 10 mg 01/22/21 09:00 Lisinopril 10 Mg Tab PO DAILY [facility] Metformin HCl 1,000 mg 01/22/21 09:00 Metformin 500 Mg Tab PO BID [facility] Nitroglycerin 0.4 mg 01/21/21 18:27 Nitroglycerin Sl Tabs 0.4 Mg Tab SUBLINGUAL Q5M PRN Chest Pain Nitroglycerin 1 inch 01/22/21 00:00 01/22/21 06:40 Nitroglycerin Oint 1 Inch/Gm Packet TOPICAL Not Given Q6HR [facility] Intake and Output 01/21/21 01/22/21 01/22/21 22:59 06:59 14:59 Intake Total 62.535 Balance 62.535 Intake: Intake, IV Titration 62.535 Amount Heparin Sod,Pork in 0.45% 62.535 NaCl 25,000 unit In 0.45 % NaCl 1 250ml.bag @ 11 UNITS/KG/HR 9.979 mls/hr IV .Q24H [facility] Rx#: [id number] Other: Voiding Method Toilet Toilet # Voids 2 2 Weight 90.718 kg 01/21/21 14:16 01/21/21 14:16
--- NOTE | 2021-01-22 10:45 | P.HPIM ---
History of Present Illness H&P Date: 01/22/21 Chief Complaint: Chest pain This is a 45-year-old female with past medical history of diabetes mellitus, hypertension, ongoing nicotine dependence,marijuana use and family history of CAD ( father at age 58 with complications of CABG/CVA, mother with history of MIs, brother had AR around age of 40 ),presented to the ER with complaints of left-sided chest pain that occurred at work yesterday morning while lifting radiating up bilateral sides of neck into jaw accompanied by shortness of breath, mild dizziness. Consumes 1 cup of coffee a day with no other caffeine intake. Reports has had palpitations on and off for over a year, PCP worked it up with a Holter monitor. Denies any nausea vomiting or diarrhea. Denies any diaphoresis. Denies any abdominal pain denies any fever or chills or congestion. EKG reporting normal sinus rhythm, troponins negative 3. Afebrile, vital signs stable, maintaining O2 sats in the high 90s on room air. Hematology unremarkable with the exception of platelets 140, d-dimer 1.29. CTA reported no evidence of PE, no acute cardiothoracic process. Chest x-ray reporting unchanged mild interstitial coarsening with no acute cardiopulmonary process. Sodium 137 potassium 4.2, BUN 12, creatinine 0.5 to let sugars ranging 130s to 160s magnesium 1.7, with mild elevation of AST ALT 39/38. Triglycerides 153 cholesterol 236, LDL 161, HDL 44. Coronavirus not detected. Placed on heparin drip, cardiology consulted. Currently reporting a headache secondary to ntg, recently medicated, improving. Review of Systems ROS Statement: Those systems with pertinent positive or pertinent negative responses have been documented in the HPI. ROS Other: All systems not noted in ROS Statement are negative. Past Medical History Past Medical History: Diabetes Mellitus, Hypertension History of Any Multi-Drug Resistant Organisms: None Reported Past Surgical History: Cholecystectomy, Hysterectomy, Orthopedic Surgery Past Psychological History: No Psychological Hx Reported Smoking Status: Current every day smoker Past Alcohol Use History: Rare Past Drug Use History: Marijuana Medications and Allergies Home Medications Medication Instructions Recorded Confirmed Type DULoxetine HCL [Cymbalta] 30 mg PO BID 09/03/19 01/21/21 History HYDROcodone/APAP 10-325MG [[place] 1 tab PO Q8H PRN 09/03/19 01/21/21 History 10-325] Ibuprofen [Motrin] 800 mg PO TID PRN 09/03/19 01/21/21 History Linagliptin [Tradjenta] 5 mg PO DAILY 09/03/19 01/21/21 History metFORMIN HCL 1,000 mg PO BID 09/03/19 01/21/21 History Lisinopril [Prinivil] 10 mg PO DAILY 01/21/21 01/21/21 History Allergies Allergy/AdvReac Type Severity Reaction Status Date / Time cefaclor [From Ceclor] Allergy Anaphylaxis Verified 01/21/21 14:44 celecoxib [From Celebrex] Allergy Anaphylaxis Verified 01/21/21 14:44 nortriptyline [From Pamelor] Allergy Anaphylaxis Verified 01/21/21 14:44 Physical Exam Vitals: Vital Signs Temp Pulse Pulse Resp BP BP Pulse Ox 01/22/21 07:55 95 01/22/21 07:00 98.2 F 78 18 129/74 97 01/22/21 02:00 98.1 F 54 L 16 135/71 99 01/21/21 20:00 98.2 F 85 16 166/96 97 01/21/21 19:09 85 16 130/90 96 01/21/21 18:27 93 18 109/72 96 01/21/21 16:20 95 16 125/79 96 01/21/21 14:55 149/99 01/21/21 13:43 97.9 F 93 18 147/93 98 Intake and Output 01/21/21 01/22/21 01/22/21 22:59 06:59 14:59 Intake Total 62.535 Balance 62.535 Intake: Intake, IV Titration 62.535 Amount Heparin Sod,Pork in 0.45% 62.535 NaCl 25,000 unit In 0.45 % NaCl 1 250ml.bag @ 11 UNITS/KG/HR 9.979 mls/hr IV .Q24H [facility] Rx#: [id number] Other: Voiding Method Toilet Toilet # Voids 2 2 Weight 90.718 kg PHYSICAL EXAM: VITAL SIGNS: [As above] GENERAL: Sitting up in bed, no acute distress HEENT: Conjunctivae normal. eyes normal. NECK: No JVD. No thyroid enlargement. No LNs CARDIOVASCULAR: S1, S2 regular.No murmur RESPIRATION: Unlabored ,Breath sounds diminished in the bases. No rhonchi or crackles. No bronchial breathing. ABDOMEN: Soft, nontender . No guarding. no masses palpable. No ascites, No hepatosplenomegaly.Bowel sounds heard. LEGS: No edema. no swelling PSYCHIATRY: Alert and oriented X3, mood and affect normal. NERVOUS SYSTEM: Cranial N 2-12 grossly normal. No focal deficits. Strength and sensation grossly intact.. Skin: Warm and dry, no rash, multiple tattoos over entire body. Lymphatic system. No LN neck axilla. Results CBC & Chem 7: 01/21/21 14:16 01/21/21 14:16 Labs: Abnormal Lab Results - Last 24 Hours (Table) 01/21/21 01/21/21 01/21/21 Range/Units 14:16 14:16 14:16 Plt Count 140 L (150-450) k/uL D-Dimer 1.29 H (<0.60) mg/L FEU Glucose 234 H (74-99) mg/dL POC Glucose (mg/dL) (75-99) mg/dL AST 39 H (14-36) U/L ALT 38 H (4-34) U/L 01/21/21 01/22/21 Range/Units 19:50 07:05 Plt Count (150-450) k/uL D-Dimer (<0.60) mg/L FEU Glucose (74-99) mg/dL POC Glucose (mg/dL) 130 H 166 H (75-99) mg/dL AST (14-36) U/L ALT (4-34) U/L Assessment and Plan Assessment: Chest pain, possible [place], rule out acute coronary syndrome, in a patient with significant family history of CAD Diabetes mellitus Hypertension Hypercholesterolemia Ongoing nicotine dependence Marijuana use Morbid Obesity,BMI 35.4 Plan: Continue on current medication regime ,monitoring and symptomatic treatment.NPO, cardiology evaluation/recommendations pending. Smoking cessation reinforced. Patient has been evaluated by cardiology and scheduled for stress test. The impression and plan of care has been dictated as directed. : I performed a history and examination of this patient, discussed the same with the dictator. I agree with the dictator's note ,documented as a scribe. Any additional findings or plans will be noted.
--- NOTE | 2021-01-22 11:44 | ECHOF ---
Referral Reason:chest pain MEASUREMENTS -------- HEIGHT: 160.0 cm WEIGHT: 90.7 kg BP: 129/74 RVIDd: 3.1 cm (< 3.3) IVSd: 1.3 cm (0.6 - 1.1) LVIDd: 4.6 cm (3.9 - 5.3) LVPWd: 1.3 cm (0.6 - 1.1) IVSs: 1.9 cm LVIDs: 3.0 cm LVPWs: 1.8 cm LA Diam: 3.9 cm (2.7 - 3.8) Ao Diam: 3.0 cm (2.0 - 3.7) AV Cusp: 1.8 cm (1.5 - 2.6) MV EXCURSION: 10.065 mm (> 18.000) MV EF SLOPE: 48 mm/s (70 - 150) EPSS: 0.6 cm MV E Marino: 0.73 m/s MV DecT: 259 ms MV A Marino: 0.86 m/s MV E/A Ratio: 0.85 RAP: 5.00 mmHg RVSP: 32.12 mmHg FINDINGS -------- Sinus rhythm. This was a technically adequate study. The left ventricular size is normal. There is mild concentric left ventricular hypertrophy. Overa ll left ventricular systolic function is normal with, an EF between 60 - 65 %. The right ventricle is normal in size. The left atrium is normal in size. The right atrium is normal in size. Interatrial and interventricular septum intact. Aortic valve is trileaflet and is mildly thickened. There is trace to mild mitral regurgitation. Mild tricuspid regurgitation present. Right ventricular systolic pressure is normal at < 35 mmHg. The pulmonic valve was not well visualized. The aortic root size is normal. Normal inferior vena cava with normal inspiratory collapse consistent with estimated right atrial pre ssure of 5 mmHg. There is no pericardial effusion. CONCLUSIONS -------- 1. The left ventricular size is normal. 2. There is mild concentric left ventricular hypertrophy. 3. Overall left ventricular systolic function is normal with, an EF between 60 - 65 %. 4. Aortic valve is trileaflet and is mildly thickened. 5. There is trace to mild mitral regurgitation. 6. Mild tricuspid regurgitation present. 7. There is no pericardial effusion. [employer] DIRECTOR: Karen Aranda RDCS
[2021-01-22 11:45] LABS: Glucose,Whole Blood 142 mg/dL (75-99)
[2021-01-22] MEDS ORDERED: INSULIN ASPART (NovoLOG) 100 UNIT/ML VIAL SQ SCH (12:30)
[2021-01-22] MEDS ORDERED: IBUPROFEN 600 MG TAB PO STA (12:47)
--- NOTE | 2021-01-22 13:27 | EST ---
EXERCISE STRESS AGE: 45 SEX: Female HT: 5'3" WT: 200 lbs. PROTOCOL: Kevin. STAGE: 3 DURATION OF EXERCISE: 9 minutes HEART RATE REST: 79 BLOOD PRESSURE REST: 133/103 MAXIMUM HEART RATE ACHIEVED: 159 MAXIMUM BLOOD PRESSURE: 203/110 85% MPHR: 148 100% MPHR: 174 METS: 10.3 INDICATIONS: Chest pain. CLINICAL INFORMATION: STRESS DATA: Heart rate an is 79, pressure is 133/103 mmHg. Baseline EKG showed sinus mechanism. The patient exercised on the treadmill according to Kevin protocol for a total of 9 minutes and achieved 10.3 METs. The max heart rate was 159, which is about 91% of maximum predicted heart rate. Maximum blood pressure was 203/110 mmHg. Clinically, the patient did not have any symptoms. The EKG did not show any significant ST or T-wave abnormalities concerning for ischemia. CONCLUSION: 1. Excellent exercise tolerance. 2. Normal EKG in response to exercise. 3. Essentially normal stress test. MMODL / IJN: [id number] /
[2021-01-22] MEDS ORDERED: ATORVASTATIN 40 MG TAB PO SCH (21:00)
[2021-01-22] MEDS ORDERED: ATORVASTATIN 20 MG TAB PO SCH (21:00)
[2021-01-23 00:34] LABS: Hemoglobin A1C 8.6 % (4.0-6.0)
== END 2021-01-22 13:18 ==
LOC: EC 13:38 → 6NMEDSUR 18:35
PROVIDERS: ADMIT Family Medicine; ATTEND Family Medicine
DX: R07.89 Other chest pain (principal); R06.02 Shortness of breath; R42 Dizziness and giddiness; R00.2 Palpitations; M54.2 Cervicalgia; R79.89 Other specified abnormal findings of blood chemistry; D69.6 Thrombocytopenia, unspecified; E11.9 Type 2 diabetes mellitus without complications; I10 Essential (primary) hypertension; F17.200 Nicotine dependence, unspecified, uncomplicated; G44.40 Drug-induced headache, not elsewhere classified, not intractable; T46.3X5A Adverse effect of coronary vasodilators, initial encounter; E78.00 Pure hypercholesterolemia, unspecified; T46.6X6A Underdosing of antihyperlipidemic and antiarteriosclerotic drugs, initial encounter; Z91.128 Patient's intentional underdosing of medication regimen for other reason; E66.01 Morbid (severe) obesity due to excess calories; Z68.35 Body mass index [BMI] 35.0-35.9, adult; F12.90 Cannabis use, unspecified, uncomplicated; Z20.822 Contact with and (suspected) exposure to COVID-19; Z90.49 Acquired absence of other specified parts of digestive tract; Z90.710 Acquired absence of both cervix and uterus; Z88.8 Allergy status to other drugs, medicaments and biological substances; Z88.1 Allergy status to other antibiotic agents; Z79.899 Other long term (current) drug therapy; Z79.84 Long term (current) use of oral hypoglycemic drugs; Z79.1 Long term (current) use of non-steroidal anti-inflammatories (NSAID); Z79.891 Long term (current) use of opiate analgesic; Z82.49 Family history of ischemic heart disease and other diseases of the circulatory system; Z82.3 Family history of stroke
CPT/HCPCS: 96376 ×2; 96366 ×2; 96375; 93005 ×2; 96365; 99291; 36415; 94760; 93017; 93306; 85379; 80061; 80053; 83735; 84484; 85025; 85610; 85730 ×2; 83036; 87635; 71046; 71275; G0378 ×2; J1644 ×3; C9113; Q9967

== ENCOUNTER 2021-07-05 18:41 | Emergency (ER) | payer OTHER ==
--- NOTE | 2021-07-05 18:52 | ED ---
General Adult HPI - General Stated complaint: trip & fall Time Seen by Provider: 07/05/21 18:52 Source: patient, RN notes reviewed Mode of arrival: ambulatory Limitations: no limitations - History of Present Illness Initial comments: This is a 45 show female presents emergency Department chief complaint of trip and fall. Patient states she tripped outside. Patient fell directly onto her right elbow. Patient states that her right level is painful, looks deformed. She states she does not want any current pain meds. Patient states that she had no head injury no trauma to her head or neck denies any back pain. - Related Data Home Medications Medication Instructions Recorded Confirmed DULoxetine HCL [Cymbalta] 30 mg PO BID 09/03/19 01/21/21 HYDROcodone/APAP 10-325MG [[place] 1 tab PO Q8H PRN 09/03/19 01/21/21 10-325] Ibuprofen [Motrin] 800 mg PO TID PRN 09/03/19 01/21/21 Linagliptin [Tradjenta] 5 mg PO DAILY 09/03/19 01/21/21 metFORMIN HCL [Glucophage] 1,000 mg PO BID 09/03/19 01/21/21 Lisinopril [Prinivil] 10 mg PO DAILY 01/21/21 01/21/21 Allergies Allergy/AdvReac Type Severity Reaction Status Date / Time cefaclor [From Ceclor] Allergy Anaphylaxis Verified 07/05/21 19:15 celecoxib [From Celebrex] Allergy Anaphylaxis Verified 07/05/21 19:15 nortriptyline [From Pamelor] Allergy Anaphylaxis Verified 07/05/21 19:15 Review of Systems ROS Statement: Those systems with pertinent positive or pertinent negative responses have been documented in the HPI. ROS Other: All systems not noted in ROS Statement are negative. Past Medical History Past Medical History: Diabetes Mellitus, Hypertension History of Any Multi-Drug Resistant Organisms: None Reported Past Surgical History: Cholecystectomy, Hysterectomy, Orthopedic Surgery Past Psychological History: No Psychological Hx Reported Smoking Status: Current every day smoker Past Alcohol Use History: Rare Past Drug Use History: Marijuana General Exam General appearance: alert, in no apparent distress Head exam: Present: atraumatic, normocephalic, normal inspection Neck exam: Present: normal inspection. Absent: tenderness, meningismus, lymphadenopathy Respiratory exam: Present: normal lung sounds bilaterally. Absent: respiratory distress, wheezes, rales, rhonchi, stridor Cardiovascular Exam: Present: regular rate, normal rhythm, normal heart sounds. Absent: systolic murmur, diastolic murmur, rubs, gallop, clicks Extremities exam: Present: other (Right elbow there is an obvious deformity, neurovascular intact times with palpation no proximal or distal arm tenderness) Neurological exam: Present: alert, oriented X3 Skin exam: Present: warm, dry, intact, normal color. Absent: rash Course Vital Signs 07/05/21 07/05/21 07/05/21 19:31 21:57 22:20 Temperature 98 F Pulse Rate 99 102 H 99 Respiratory 18 18 18 Rate Blood Pressure 139/92 139/87 130/79 O2 Sat by Pulse 98 96 99 Oximetry 07/05/21 07/05/21 07/05/21 22:24 22:29 22:34 Temperature Pulse Rate 88 91 84 Respiratory 16 12 12 Rate Blood Pressure 163/97 151/88 132/89 O2 Sat by Pulse 95 93 L 94 L Oximetry Procedures - Orthopedic Joint Reduction Joint #1 Consent Obtained: written consent Side: right Joint Reduction Location: elbow Analgesia: procedural sedation Technique Used: traction/counter-traction Post-Reduction Neuro Exam: intact Post-Reduction Vascular Exam: intact Post Reduction X-Ray Obtained: Yes Post Reduction X-Ray Results: reduced Patient Tolerated Procedure: well, no complications Medical Decision Making - Medical Decision Making 45 show female presented for a fall, right elbow dislocation with avulsion-type fracture. Patient did have adduction place in a sling follow-up with orthopedics. He shows placed in a sling follow-up with orthopedics case discussed with Dr. Clements. Disposition Clinical Impression: Dislocation of right elbow Disposition: HOME SELF-CARE Condition: Stable Instructions (If sedation given, give patient instructions): Elbow Dislocation (ED) Additional Instructions: Please return to the Emergency Department if symptoms worsen or any other concerns. Please stay in sling until seen by orthopedics. Is patient prescribed a controlled substance at d/c from ED?: No Referrals: Phil Arambula Jr, DO [Primary Care Provider] - 1-2 days James Clements MD [Medical Doctor] - 1-2 days Time of Disposition: 22:41
[2021-07-05 19:32] VITALS: TEMP 98
[2021-07-05] MEDS ORDERED: HYDROmorphone 1 MG/ML 1 ML SYRINGE IVP STA ×4 (20:26→22:44)
[2021-07-05] MEDS ORDERED: DIAZEPAM 5 MG/ML 2 ML INJ IVP STA (20:26)
[2021-07-05] MEDS ORDERED: ONDANSETRON 4 MG/2 ML VIAL IVP STA (20:26)
--- NOTE | 2021-07-05 20:36 | XR ---
EXAMINATION TYPE: XR elbow limited RT DATE OF EXAM: 07/05/2021 CLINICAL HISTORY: Fall/pain TECHNIQUE: Frontal, lateral and oblique images of the right elbow are obtained. COMPARISON: None FINDINGS: There is disarticulation of the elbow joint with posterior displacement of the ulna and rad ius. There is a moderate joint effusion. Few tiny osseous fragments projecting over the trochlear not ch and anterior to the trochlea likely relate to avulsion fracture fragments. IMPRESSION: Disarticulation/dislocation of the elbow with a moderate joint effusion and small avulsio n fractures as described.
[2021-07-05] MEDS ORDERED: SODIUM CHLORIDE 0.9% 500 ML 500 ML IV STA (21:26)
[2021-07-05] MEDS ORDERED: PROPOFOL 10 MG/ML 20 ML VIAL IV STA (21:26)
[2021-07-05] MEDS ORDERED: ACET/COD 300 MG/30 MG STARTER PACK 6 TAB BTL PO STA (22:41)
--- NOTE | 2021-07-05 22:57 | XR ---
EXAMINATION TYPE: XR elbow limited RT DATE OF EXAM: 07/05/2021 COMPARISON: NONE HISTORY: Post reduction TECHNIQUE: Single view FINDINGS: A single lateral view shows apparent anatomic reduction of the elbow joint. There is probab ly a large chip fracture of the coronoid process of the ulna. IMPRESSION: Limited exam shows anatomic reduction.
[2021-07-05 23:57] VITALS: BP 138/82; PULSE 89; RESP 18
== END 2021-07-05 23:57 | disposition home or self-care (01) ==
LOC: EC 18:41
DX: S53.104A Unspecified dislocation of right ulnohumeral joint, initial encounter (principal); E11.9 Type 2 diabetes mellitus without complications; I10 Essential (primary) hypertension; F17.200 Nicotine dependence, unspecified, uncomplicated; F12.90 Cannabis use, unspecified, uncomplicated; Z79.1 Long term (current) use of non-steroidal anti-inflammatories (NSAID); Z79.84 Long term (current) use of oral hypoglycemic drugs; Z79.899 Other long term (current) drug therapy; Z88.1 Allergy status to other antibiotic agents; Z88.6 Allergy status to analgesic agent; W01.0XXA Fall on same level from slipping, tripping and stumbling without subsequent striking against object, initial encounter
CPT/HCPCS: 99284; 96374; 96375 ×2; 96376; 73070; 24600; J3360; J2405; J1170; J2704

== ENCOUNTER → 2021-07-09 | Outpatient (CLI) | payer OTHER ==
--- NOTE | 2021-07-12 14:22 | CT ---
EXAMINATION TYPE: CT elbow RT wo con DATE OF EXAM: 07/09/2021 COMPARISON: Radiograph 07/05/2021. HISTORY: 45-year-old female right elbow pain following fall. M25.521 pain in right elbow, S53.124A TECHNIQUE: Contiguous axial scanning of the right elbow without IV contrast. Coronal and sagittal rec onstructions performed. 3-D reconstructions generated on a dedicated independent workstation. CT DLP: 221.7 mGycm Automated exposure control for dose reduction was used. FINDINGS: Generalized soft tissue swelling and large elbow joint effusion. Overlying fiberglass splint. There is evidence of previous elbow dislocation. No current subluxation or dislocation. There is a small nondisplaced fracture along the radial margin of the radial head, refer to coronal i mage 22. Small avulsion fracture fragment along the posterior and inferior margin of the lateral epicondyle. Mildly comminuted fracture of the coronoid process of the proximal ulna. A couple small loose bodies measuring up to 6 mm within the posterior ulnotrochlear joint, refer to a xial image 49. IMPRESSION: 1. TERRIBLE TRIAD TYPE INJURY PATTERN. THERE IS SUCCESSFUL REDUCTION OF THE ELBOW JOINT WITH A MILDLY COMMINUTED FRACTURE OF THE CORONOID PROCESS. SMALL AVULSION FRACTURE FRAGMENTS ALONG THE POSTERIOR I NFERIOR MARGIN OF THE LATERAL EPICONDYLE, NONDISPLACED FRACTURE ALONG THE RADIAL MARGIN OF THE RADIAL HEAD, AND A COUPLE SMALL LOOSE BODIES MEASURING UP TO 6 MM WITHIN THE POSTERIOR ULNOTROCHLEAR JOINT. 2. GENERALIZED SOFT TISSUE SWELLING AND ELBOW JOINT EFFUSION. OVERLYING FIBERGLASS SPLINT.
== END | disposition home or self-care (01) ==
LOC: RADCTMAIN 15:21
PROVIDERS: ATTEND Orthopaedic Surgery
DX: S52.124A Nondisplaced fracture of head of right radius, initial encounter for closed fracture (principal); S52.041A Displaced fracture of coronoid process of right ulna, initial encounter for closed fracture; S42.431A Displaced fracture (avulsion) of lateral epicondyle of right humerus, initial encounter for closed fracture

== ENCOUNTER → 2021-10-07 | Outpatient (CLI) | payer OTHER | END | disposition home or self-care (01) | LOC: LABWHC1 18:58 | PROVIDERS: ATTEND Emergency Medicine | DX: U07.1 COVID-19 (principal) | CPT/HCPCS: 87635 ==

== ENCOUNTER → 2021-10-12 | Outpatient (CLI) | payer OTHER ==
[~2021-10-12] MED LIST: CASIRIVIMAB (REGN10933) (EUA) 600 MG, IMDEVIMAB (REGN10987) (EUA) 600 MG in SODIUM CHLO... IVPB ONE; SODIUM CHLORIDE 0.9% 50 ML IVPB ONE; SODIUM CHLORIDE 0.9% 500 ML 500 ML in EMPTY BAG 1 BAG IV PRN
[2021-10-12 13:56] VITALS: RESP 16; TEMP 97.6
[2021-10-12 15:11] VITALS: BP 142/90; PULSE 88
== END ==
LOC: PROCWHC3 13:14
PROVIDERS: ATTEND Nurse Practitioner Family
DX: U07.1 COVID-19 (principal); E66.9 Obesity, unspecified; E11.9 Type 2 diabetes mellitus without complications; F17.200 Nicotine dependence, unspecified, uncomplicated; Z68.35 Body mass index [BMI] 35.0-35.9, adult; Z88.1 Allergy status to other antibiotic agents; Z88.5 Allergy status to narcotic agent
CPT/HCPCS: 96360; Q0244; M0243

== ENCOUNTER → 2022-06-08 | Outpatient (CLI) | payer OTHER ==
--- NOTE | 2022-06-08 14:30 | P.SLEEP ---
History of Present Illness DATE: 06/08/2022 CONSULTATION/NEW PATIENT EVALUATION HISTORY OF PRESENT ILLNESS/SLEEP-WAKE EVALUATION: 46year old lady had been e valuated in the sleep center for possible obstructive sleep apnea hypopnea syndrome. Patient has history of obstructive sleep apnea hypopnea syndrome documented by sleep study in our institution 2012. At that time apnea-hypopnea index was 12. Patient was recommended to start CPAP treatment. But she said the surgical treatment with the nasal septum surgery, feels better at that time and did not proceed with CPAP treatment. SLEEP SCHEDULE: Patient works at swing shift, subsequently show sleep schedule is different. Usually she gets up around 9 AM. FALLING ASLEEP: Patient has problems with the falling asleep, although no TV in bedroom. Possibly restless leg symptoms. DURING SLEEP: Patient sleeps in different positions with loud snoring and multiple awakenings from sleep with up to 2 episodes of nocturia. No history of hypnogogical hallucinations, sleep paralysis, or cataplexy. DURING THE DAY/WAKE STATE: In the morning patient wake up tired, falling asleep during the day, has episodes of irritability and anxiety. [place] sleepiness scale is significantly increased to 13. Patient usually doesn't take naps. PAST MEDICAL HISTORY: Diabetes mellitus, hypertension, Covid 19 2 times last in 2021. PAST SURGICAL HISTORY: Cholecystectomy, total hysterectomy. MEDICATIONS: Metformin 1000 mg twice a day, Cymbalta twice a day, insulin, Cos Cob 10 mg 3 times a day, Motrin. SOCIAL HISTORY: Presently marijuana smoker, history of nicotine smoking for 30 pack years, alcohol consumption occasional. FAMILY HISTORY: Heart problems, epilepsy. REVIEW OF SYSTEMS: Loud snoring, multiple awakenings from sleep, sleepiness. No fevers. No double vision. No recent chest pain. No shortness of breath. No abdominal pain. No bleeding episodes. No blood in urine. No seizure episodes. PHYSICAL EXAMINATION: GENERAL: A pleasant patient without any distress. VITAL SIGNS: BP 145/82, HR 86, RR 16, weight 207 pounds, height 5 foot 3-1/2 inches, body mass index 36.4. HEENT: PERRLA, EOMI. Evaluation of oropharynx showed tongue protrudes midline, low position of soft palate Mallampati 3. NECK: Supple. No JVD. Thyroid is not palpable. 16.5 inches in circumference. LUNGS: Clear to percussion and to auscultation. Good air exchange. No wheezing or rhonchi. HEART: S1, S2 regular. No murmurs, gallops or rubs. ABDOMEN: Soft and nontender. Bowel sounds are present. No organomegaly appreciated. EXTREMITIES: No clubbing or cyanosis. FLEET MAINTENANCE FOREMAN: Awake, alert, and oriented x3. Cranial nerves 2 to 7 intact. There is no fasciculation or atrophy noted. No focal deficits observed. ASSESSMENT: 1. Loud snoring, multiple awakenings from sleep, history of obstructive sleep apnea-hypopnea syndrome in the past, wide neck 16 and the half inches, sleepiness [place] Sleepiness Scale is 13. Obstructive sleep apnea hypopnea syndrome. 2. Restless leg symptoms. 3 diabetes mellitus. 4. History of hypertension in the past. 5 status post nasal septoplasty surgery. 6. Status post Covid 19 2, last episodes in 2021. 7. Obesity body mass index 36.4. 8. Status post cholecystectomy. 9. Status post total hysterectomy. 10. On treatment with Cos Cob for pain. PLAN: 1. Polysomnography for evaluation of patient's breathing during sleep. 2. CPAP/BiPAP titration if sleep study confirms obstructive sleep apnea- hypopnea syndrome. 3. Preferable position during sleep on the side. 4. No driving if patient feels any sleepiness. Patient is aware of civil and criminal liability for unsafe driving. 5. Sleep hygiene with regular sleep time for at least 7.5-8 hours. 6. Watching and losing weight. Thank you very much for referring this patient for consultation. Sincerely, Kwan Bass MD, PhD, FAASM. Diplomat of [place] [employer], Sleep Medicine Board by [place] [employer] [employer] Educational Program Assistant of [place] [facility] Vendor Past Medical History Past Medical History: Diabetes Mellitus, Hypertension History of Any Multi-Drug Resistant Organisms: None Reported Past Surgical History: Cholecystectomy, Hysterectomy, Orthopedic Surgery Past Psychological History: No Psychological Hx Reported Smoking Status: Current every day smoker Past Alcohol Use History: Rare Past Drug Use History: Marijuana Medications and Allergies Home Medications Medication Instructions Recorded Confirmed Type DULoxetine HCL [Cymbalta] 30 mg PO BID 09/03/19 01/21/21 History HYDROcodone/APAP 10-325MG [[place] 1 tab PO Q8H PRN 09/03/19 01/21/21 History 10-325] Ibuprofen [Motrin] 800 mg PO TID PRN 09/03/19 01/21/21 History Linagliptin [Tradjenta] 5 mg PO DAILY 09/03/19 01/21/21 History metFORMIN HCL [Glucophage] 1,000 mg PO BID 09/03/19 01/21/21 History lisinopriL [Prinivil] 10 mg PO DAILY 01/21/21 01/21/21 History Allergies Allergy/AdvReac Type Severity Reaction Status Date / Time cefaclor [From Ceclor] Allergy Anaphylaxis Verified 10/12/21 13:59 celecoxib [From Celebrex] Allergy Anaphylaxis Verified 10/12/21 13:59 nortriptyline [From Pamelor] Allergy Anaphylaxis Verified 10/12/21 13:59 Sleep Note - Sleep Note Sleep Note: Temperature: Pulse Rate: Respiratory Rate: Blood Pressure: SpO2: Height: Weight: BMI: Neck Circumference:
== END ==
LOC: SLEEP 13:52
PROVIDERS: ATTEND Internal Medicine
DX: G47.33 Obstructive sleep apnea (adult) (pediatric) (principal); G25.81 Restless legs syndrome; E11.9 Type 2 diabetes mellitus without complications; I10 Essential (primary) hypertension; Z98.890 Other specified postprocedural states; Z86.16 Personal history of COVID-19; E66.9 Obesity, unspecified; Z68.36 Body mass index [BMI] 36.0-36.9, adult; Z90.49 Acquired absence of other specified parts of digestive tract; Z90.710 Acquired absence of both cervix and uterus; Z79.891 Long term (current) use of opiate analgesic; Z79.84 Long term (current) use of oral hypoglycemic drugs; Z79.4 Long term (current) use of insulin; Z88.1 Allergy status to other antibiotic agents; Z88.8 Allergy status to other drugs, medicaments and biological substances; F17.200 Nicotine dependence, unspecified, uncomplicated
CPT/HCPCS: 99211

== ENCOUNTER → 2022-09-09 | Outpatient (CLI) | payer OTHER | END | disposition home or self-care (01) | LOC: LABWHC1 11:42 | PROVIDERS: ATTEND Emergency Medicine | DX: Z20.822 Contact with and (suspected) exposure to COVID-19 (principal) ==

== ENCOUNTER → 2023-05-17 | Outpatient (CLI) | payer OTHER ==
--- NOTE | 2023-05-17 12:05 | P.PN ---
Subjective DATE: 05/17/2023 FOLLOW UP VISIT. Patient with obstructive sleep apnea hypopnea syndrome return to sleep center for follow-up visit. Information from previous visit have been reviewed. Patient is using PAP equipment every night for the whole night, getting PAP supplies in time. The patient does not have significant problems with the mask, PAP unit and humidification. [place] sleepiness scale is increased to 12. I checked information from PAP unit. PAP unit pressure 5-12, average 8.2 cm H2O. Usage is about 70 % for more then 4 hours, average 4 hours per night. Leak is 5.3 l/m, which is in acceptable range. Apnea Hypopnea Index is 0.5, which is normal. MEDICATIONS:1. Metformin 1000 mg once a day 2. Cymbalta 3. Tragenta 5 mg once a day 4. Trulicity once a week During physical exam: GENERAL: A pleasant patient without any distress. VITAL SIGNS: BP 147/90, HR 91, RR 18 , weight 190.2, temperature 97.7, oxygen saturation at room air 97 % . HEENT: PERRLA, EOMI.low position of soft palate, Mallapati 3 . NECK: Supple. No JVD. LUNGS: Clear to percussion and to auscultation. Good air exchange. No wheezing or rhonchi. HEART: S1, S2 regular. ABDOMEN: Soft and nontender. Obese EXTREMITIES: No clubbing or cyanosis. [employer]BER: Awake, alert, and oriented x3. No focal deficit. Impressions: 1. Obstructive sleep apnea-hypopnea syndrome. Patient demonstrated great compliance with treatment, benefiting from treatment. 2. Obesity, patient lost 24 pounds since previous visit. 3. History of periodic limb movements. 4. History of headaches, no headaches on CPAP. 5. History of hypertension the past. 6. Diabetes mellitus. 7. Status post Covid 192. 8. Status post total hysterectomy. Plan: 1. Continue using PAP equipment every night for the whole night. 2. To change air filter at least 1-2 times per month. 3. PAP unit should stay lower then position of the head. 4. Advised patient to remove all remaining water from humidifier canister daily and make it dry after each usage. Refill canister with fresh distilled water before each usage. 5. Sleep hygiene with regular time in bed for at least 8 hours. 6. Precautions related to driving. No driving if feel any sleepiness. 7. I will maintain prescription for PAP supplies including mask, tube, filters. 8. Follow up visit in 6 months or earlier if patient has any problems. 9. Continue losing weight. Thank you very much for allowing me to participate in the management of your patient. Kwan Bass MD, PhD, FAASM. Diplomat of [place] [employer], Sleep Medicine Board by [place] [employer] [facility]itarian [facility] [place]
== END ==
LOC: 3 N SLEEP 11:32
PROVIDERS: ATTEND Internal Medicine
DX: G47.33 Obstructive sleep apnea (adult) (pediatric) (principal); E11.9 Type 2 diabetes mellitus without complications; E66.9 Obesity, unspecified; I10 Essential (primary) hypertension; G47.61 Periodic limb movement disorder; Z79.84 Long term (current) use of oral hypoglycemic drugs; Z86.16 Personal history of COVID-19; Z90.710 Acquired absence of both cervix and uterus; Z99.89 Dependence on other enabling machines and devices; Z98.890 Other specified postprocedural states; Z88.1 Allergy status to other antibiotic agents; Z88.8 Allergy status to other drugs, medicaments and biological substances; F17.200 Nicotine dependence, unspecified, uncomplicated; Z79.85 Long-term (current) use of injectable non-insulin antidiabetic drugs
CPT/HCPCS: 99212

== ENCOUNTER 2023-10-15 03:53 | Inpatient (IN) | payer OTHER ==
[2023-10-15] MEDS ORDERED: SODIUM CHLORIDE 0.9% 1,000 ML IV STA (04:07)
[2023-10-15] MEDS ORDERED: HEPARIN SODIUM 1,000 UN/ML (10ML VL) IV ONE (04:07)
[2023-10-15] MEDS ORDERED: ASPIRIN 81 MG PO STA (04:07)
[2023-10-15] MEDS ORDERED: MORPHINE SULFATE 4 MG/ML SYRINGE IVP STA (04:10)
--- NOTE | 2023-10-15 04:16 | ED ---
General Adult HPI - General Chief complaint: Chest Pain Stated complaint: CHEST PAIN Time Seen by Provider: 10/15/23 04:04 Source: patient, RN notes reviewed, old records reviewed Mode of arrival: wheelchair Limitations: no limitations - History of Present Illness Initial comments: Patient is a 48-year-old female with past medical history remarkable for prior pulmonary embolism, diabetes, hypertension no longer blood thinners who presents mostly department with chest pain. Describes it primarily as substernal crushing pain with radiation towards the neck. States she does have some mild involvement of the back as well. States it began at 10 PM last night and she went to bed's thinking it would improve but did not which is why she presents for further evaluation at this time. Denies any nausea or vomiting. Denies any history of cardiac stents or MIs. Is currently not on blood thinners. Presents for further evaluation at this time. I evaluated the patient when she was placed in room 5. - Related Data Home Medications Medication Instructions Recorded Confirmed DULoxetine HCL [Cymbalta] 30 mg PO BID 09/03/19 01/21/21 HYDROcodone/APAP 10-325MG [Birney 1 tab PO Q8H PRN 09/03/19 01/21/21 10-325] Ibuprofen [Motrin] 800 mg PO TID PRN 09/03/19 01/21/21 Linagliptin [Tradjenta] 5 mg PO DAILY 09/03/19 01/21/21 metFORMIN HCL [Glucophage] 1,000 mg PO BID 09/03/19 01/21/21 lisinopriL [Prinivil] 10 mg PO DAILY 01/21/21 01/21/21 Previous Rx's Medication Instructions Recorded Ibuprofen [Motrin] 600 mg PO Q6HR PRN #20 tab 06/30/23 Allergies Allergy/AdvReac Type Severity Reaction Status Date / Time cefaclor [From Ceclor] Allergy Anaphylaxis Verified 10/15/23 03:57 celecoxib [From Celebrex] Allergy Anaphylaxis Verified 10/15/23 03:57 nortriptyline [From Pamelor] Allergy Anaphylaxis Verified 10/15/23 03:57 Review of Systems ROS Statement: Those systems with pertinent positive or pertinent negative responses have been documented in the HPI. IReview of Systems: CONST: Denies fever EYES: Denies blurry vision ENT: Denies nasal congestion C/V: Endorses chest pain RESP: Denies shortness of breath GI: Denies abdominal pain : Denies dysuria SKIN: Denies rash. MSK: Denies joint pain. NEURO: Denies headache ROS Other: All systems not noted in ROS Statement are negative. Past Medical History Past Medical History: Diabetes Mellitus, Hypertension History of Any Multi-Drug Resistant Organisms: None Reported Past Surgical History: Cholecystectomy, Hysterectomy, Orthopedic Surgery Past Psychological History: No Psychological Hx Reported Smoking Status: Current every day smoker Past Alcohol Use History: Rare Past Drug Use History: Marijuana General Exam - General Exam Comments Initial Comments: General: Appears in no acute distress. HEAD: Normal with no signs of head trauma. EYES: PERRLA, EOMI, conjunctiva normal, no discharge. ENT: Hearing grossly intact, normal oropharynx. RESPIRATORY: Clear breath sounds bilaterally. No wheezes, rales, or rhonchi. C/V: Regular rate and rhythm. S1 and S2 auscultated, no edema, peripheral pul ses 2+ and intact throughout ABD: Abd is soft, nontender, nondistended EXT: Normal range of motion, no obvious deformity SKIN: No rashes or lesions observed on exposed skin. NEURO: Alert and oriented 4. Limitations: no limitations Course Vital Signs 10/15/23 10/15/23 10/15/23 03:55 04:09 04:14 Temperature 98.1 F Pulse Rate 106 H 112 H 115 H Respiratory 20 20 20 Rate Blood Pressure 202/125 196/139 194/154 O2 Sat by Pulse 98 99 99 Oximetry 10/15/23 10/15/23 10/15/23 04:20 04:29 04:31 Temperature Pulse Rate 112 H 107 H 110 H Respiratory 20 20 20 Rate Blood Pressure 197/122 196/123 204/130 O2 Sat by Pulse 98 98 98 Oximetry Medical Decision Making - Medical Decision Making Was pt. sent in by a medical professional or institution (, PA, CERTIFIED REGISTERED NURSE PRACTITIONER, urgent care, hospital, or longterm...) When possible be specific @ -No Did you speak to anyone other than the patient for history (EMS, parent, family, police, friend...)? What history was obtained from this source @ -No Did you review nursing and triage notes (agree or disagree)? Why? @ -I reviewed and agree with nursing and triage notes Were old charts reviewed (outside hosp., previous admission, EMS record, old EKG, old radiological studies, urgent care reports/EKG's, longterm records)? Report findings @ -Charts reviewed Differential Diagnosis (chest pain, altered mental status, abdominal pain women, abdominal pain men, vaginal bleeding, weakness, fever, dyspnea, syncope, he adache, dizziness, GI bleed, back pain, seizure, CVA, palpatations, mental health, musculoskeletal)? @ -Differential Chest Pain: Stable Angina, Unstable Angina, STEMI, NSTEMI Aortic Dissection, Pneumothorax, Musculoskeletal, Esophageal Spasm GERD, Cholecystitis, Pancreatitis, Zoster, this is not meant to be an all-inclusive list. EKG interpreted by me (3pts min.). @ -As above X-rays interpreted by me (1pt min.). @ -Chest x-ray reveals no concern for mediastinal widening. CT interpreted by me (1pt min.). @ -None done U/S interpreted by me (1pt. min.). @ -None done What testing was considered but not performed or refused? (CT, X-rays, U/S, labs)? Why? @ -None What meds were considered but not given or refused? Why? @ -None Did you discuss the management of the patient with other professionals (professionals i.e. , PA, CERTIFIED REGISTERED NURSE PRACTITIONER, lab, RT, psych nurse, social work coordinator, oil spot washer, teacher, loan officer, piano case and bench assembler)? Give summary @ -Discussed with cardiology Dr. Echavarria was in agreement with plan for clinical laboratory assistant. Spoke with the admitting physician, Dr. Harden who is covering for Dr. Arambula who accepted the admission. Was smoking cessation discussed for >3mins.? @ -No Was critical care preformed (if so, how long)? @ -yes, 20 minutes Were there social determinants of health that impacted care today? How? (Homelessness, low income, unemployed, alcoholism, drug addiction, transportation, low edu. Level, literacy, decrease access to med. care, fci, rehab)? @ -No Was there de-escalation of care discussed even if they declined (Discuss DNR or withdrawal of care, Hospice)? DNR status @ -No What co-morbidities impacted this encounter? (DM, HTN, Smoking, COPD, CAD, Cancer, CVA, ARF, Chemo, Hep., AIDS, mental health diagnosis, sleep apnea, morbid obesity)? @ -None Was patient admitted / discharged? Hospital course, mention meds given and route, prescriptions, significant lab abnormalities, going to OR and other pertinent info. @ -Based on the patient's presentation and physical exam, presents with what appears to be STEMI. I was handed the EKG immediately after was obtained at 0403. I immediately evaluated the patient at 0404. STEMI was activated at this time. We will obtain cardiac labs. Patient is hypertensive and tachycardic but extremely anxious as well. Due to concern for inferior STEMI, we will avoid nitro at this time and treat pain with morphine. Patiently placed on portable case monitor with pads. She'll be given a 1 L fluid bolus, IV heparin bolus, as well as 324mg aspirin. Patient was in agreement this plan. I spoke with on-call foxing painter, Dr. Echavarria who was in agreement with the plan for clinical laboratory assistant. Patient will be dispositioned to the Communication Coordinator in serious condition. Admission following cardiac cath. I spoke with Dr. Harden who will admit the patient. Following morphine administration, patient remains hypertensive. Patient given a dose of IV metoprolol. laboratory clerk 3 is ready for the patient patient was di spositioned to clinical laboratory assistant 3. Laboratory studies returned after the patient was taken to the Communication Coordinator. Patient has a leukocytosis of 21. Troponin is elevated to 3.5. Undiagnosed new problem with uncertain prognosis? @ -No Drug Therapy requiring intensive monitoring for toxicity (Heparin, Nitro, Insulin, Cardizem)? @ -No Were any procedures done? @ -No Diagnosis/symptom? @ -STEMI Acute, or Chronic, or Acute on Chronic? @ -Acute Uncomplicated (without systemic symptoms) or Complicated (systemic symptoms)? @ -Complicated Side effects of treatment? @ -No Exacerbation, Progression, or Severe Exacerbation? @ -No Poses a threat to life or bodily function? How? (Chest pain, [place], [place], pneumonia, PE, COPD, DKA, ARF, appy, cholecystitis, CVA, Diverticulitis, Homicidal, Suicidal, threat to staff... and all critical care pts) @ -Yes - Lab Data Result diagrams: 10/15/23 04:09 10/15/23 04:09 Lab Results 10/15/23 10/15/23 10/15/23 Range/Units 04:09 04:09 04:09 WBC 21.2 H (3.8-10.6) k/uL RBC 5.66 H (3.80-5.40) m/uL Hgb 17.4 H (11.4-16.0) gm/dL Hct 50.7 H (34.0-46.0) % MCV 89.5 (80.0-100.0) fL MCH 30.7 (25.0-35.0) pg MCHC 34.3 (31.0-37.0) g/dL RDW 12.9 (11.5-15.5) % Plt Count 195 (150-450) k/uL MPV 8.8 Neutrophils % 83 % Lymphocytes % 11 % Monocytes % 3 % Eosinophils % 1 % Basophils % 0 % Neutrophils # 17.7 H (1.3-7.7) k/uL Lymphocytes # 2.4 (1.0-4.8) k/uL Monocytes # 0.7 (0-1.0) k/uL Eosinophils # 0.1 (0-0.7) k/uL Basophils # 0.1 (0-0.2) k/uL PT 10.1 (10.0-12.5) sec INR 0.9 (<1.2) APTT 23.4 (22.0-30.0) sec Sodium 138 (137-145) mmol/L Potassium 4.1 (3.5-5.1) mmol/L Chloride 100 (98-107) mmol/L Carbon Dioxide 22 (22-30) mmol/L Anion Gap 16 mmol/L BUN 10 (7-17) mg/dL Creatinine 0.63 (0.52-1.04) mg/dL Est GFR (CKD-EPI)AfAm >90 (>60 ml/min/1.73 sqM) Est GFR (CKD-EPI)NonAf >90 (>60 ml/min/1.73 sqM) Glucose 193 H (74-99) mg/dL Calcium 10.5 H (8.4-10.2) mg/dL Magnesium 1.6 (1.6-2.3) mg/dL Total Bilirubin 1.1 (0.2-1.3) mg/dL AST 94 H (14-36) U/L ALT 36 H (4-34) U/L Alkaline Phosphatase 109 (38-126) U/L Troponin I (0.000-0.034) ng/mL Total Protein 8.5 H (6.3-8.2) g/dL Albumin 5.1 H (3.5-5.0) g/dL 10/15/23 Range/Units 04:09 WBC (3.8-10.6) k/uL RBC (3.80-5.40) m/uL Hgb (11.4-16.0) gm/dL Hct (34.0-46.0) % MCV (80.0-100.0) fL MCH (25.0-35.0) pg MCHC (31.0-37.0) g/dL RDW (11.5-15.5) % Plt Count (150-450) k/uL MPV Neutrophils % % Lymphocytes % % Monocytes % % Eosinophils % % Basophils % % Neutrophils # (1.3-7.7) k/uL Lymphocytes # (1.0-4.8) k/uL Monocytes # (0-1.0) k/uL Eosinophils # (0-0.7) k/uL Basophils # (0-0.2) k/uL PT (10.0-12.5) sec INR (<1.2) APTT (22.0-30.0) sec Sodium (137-145) mmol/L Potassium (3.5-5.1) mmol/L Chloride (98-107) mmol/L Carbon Dioxide (22-30) mmol/L Anion Gap mmol/L BUN (7-17) mg/dL Creatinine (0.52-1.04) mg/dL Est GFR (CKD-EPI)AfAm (>60 ml/min/1.73 sqM) Est GFR (CKD-EPI)NonAf (>60 ml/min/1.73 sqM) Glucose (74-99) mg/dL Calcium (8.4-10.2) mg/dL Magnesium (1.6-2.3) mg/dL Total Bilirubin (0.2-1.3) mg/dL AST (14-36) U/L ALT (4-34) U/L Alkaline Phosphatase (38-126) U/L Troponin I 3.540 H* (0.000-0.034) ng/mL Total Protein (6.3-8.2) g/dL Albumin (3.5-5.0) g/dL - EKG Data -: EKG Interpreted by Me EKG Comments: 12-lead Electrocardiogram Interpretation Note EKG was reviewed and interpreted by myself. 12-lead ECG performed at 0403 is interpreted by me as revealing normal sinus rhythm at a rate of 96 beats per minute. Ola is normal. MN interval is 120 ms, QRS duration is 96 ms, QTc is [address] segment elevations in leads II, III, aVF as well as V3 through V6. Patient also has reciprocal ST segment depressions in leads aVL, V2. By my interpretation, this EKG is concerning for STEMI.. Critical Care Time Critical Care Time: Yes Total Critical Care Time: 20 Disposition Clinical Impression: STEMI (ST elevation myocardial infarction) Disposition: ADMITTED IP TO THIS HOSP Condition: Serious Referrals: Phil Arambula Jr, [Primary Care Provider] - 1-2 days Time of Disposition: 04:35
[2023-10-15] MEDS ORDERED: ONDANSETRON 4 MG/2 ML VIAL IVP STA (04:17)
--- NOTE | 2023-10-15 04:19 | XR ---
EXAMINATION TYPE: XR chest 1V portable DATE OF EXAM: 10/15/2023 COMPARISON: Chest x-ray January 21, 2021 HISTORY: STEMI TECHNIQUE: Single frontal upright view of the chest is obtained. FINDINGS: There is no images focal air space opacity, pleural effusion, or pneumothorax seen. The c ardiac silhouette size is stable and within normal limits. The osseous structures are intact. Overl manuel EKG leads are redemonstrated. IMPRESSION: No acute process.
[2023-10-15 04:20] LABS: Basophils # (A) 0.1 k/uL (0-0.2); Basophils % (A) 0 %; Eosinophils # (A) 0.1 k/uL (0-0.7); Eosinophils % (A) 1 %; HCT 50.7 % (34.0-46.0); HGB 17.4 gm/dL (11.4-16.0); Lymphocytes # (A) 2.4 k/uL (1.0-4.8); Lymphocytes % (A) 11 %; MCH 30.7 pg (25.0-35.0); MCHC 34.3 g/dL (31.0-37.0); MCV 89.5 fL (80.0-100.0); Mean Platelet Volume 8.8; Monocytes # (A) 0.7 k/uL (0-1.0); Monocytes % (A) 3 %; Neutrophils # (A) 17.7 k/uL (1.3-7.7); Neutrophils % (A) 83 %; Platelet Count 195 k/uL (150-450); RBC 5.66 m/uL (3.80-5.40); RDW 12.9 % (11.5-15.5); WBC 21.2 k/uL (3.8-10.6)
[2023-10-15] MEDS ORDERED: METOPROLOL TARTRATE 5 MG/5 ML VIAL IVP STA (04:26)
[2023-10-15 04:28] LABS: INR 0.9 (<1.2); Partial Thromboplastin Time 23.4 sec (22.0-30.0); Prothrombin Time 10.1 sec (10.0-12.5)
[2023-10-15 04:29] LABS: ALT 36 U/L (4-34); AST 94 U/L (14-36); African American GFR (CKD) >90 (>60 ml/min/1.73 sqM); Albumin 5.1 g/dL (3.5-5.0); Alkaline Phosphatase 109 U/L (38-126); Anion Gap 16 mmol/L; Blood Urea Nitrogen 10 mg/dL (7-17); Calcium 10.5 mg/dL (8.4-10.2); Carbon Dioxide 22 mmol/L (22-30); Chloride 100 mmol/L (98-107); Glucose 193 mg/dL (74-99); Magnesium 1.6 mg/dL (1.6-2.3); Non-African American GFR(CKD) >90 (>60 ml/min/1.73 sqM); Potassium 4.1 mmol/L (3.5-5.1); Sodium 138 mmol/L (137-145); Total Bilirubin 1.1 mg/dL (0.2-1.3); Total Protein 8.5 g/dL (6.3-8.2)
[2023-10-15] MEDS ORDERED: NALOXONE 0.4 MG/ML 1 ML VIAL IV PRN (04:37)
[2023-10-15] MEDS ORDERED: VERAPAMIL 2.5 MG/ML 2 ML AMP ONE ×2 (04:44→09:50)
[2023-10-15] MEDS ORDERED: LIDOCAINE 1% INJ 10MG/ML (20 ML MDV) ONE ×2 (04:44→09:50)
[2023-10-15] MEDS ORDERED: HEPARIN SODIUM 1,000 UN/ML (10ML VL) ONE ×2 (04:44→09:50)
[2023-10-15] MEDS ORDERED: VERAPAMIL SYRINGE (5 MG/10 ML) INTRAARTER ONE (04:49)
[2023-10-15] MEDS ORDERED: MIDAZOLAM 2 MG/2 ML VIAL IVP ONE ×2 (04:49→10:18)
[2023-10-15] MEDS ORDERED: LIDOCAINE 1% INJ 10MG/ML (20 ML MDV) SQ ONE ×2 (04:49→10:20)
[2023-10-15] MEDS ORDERED: METOPROLOL TARTRATE 5 MG/5 ML VIAL IVP ONE (04:52)
[2023-10-15] MEDS ORDERED: IV FLUID CONTINUATION 1,000 ML IV ONE ×2 (04:57→10:10)
[2023-10-15] MEDS ORDERED: PRASUGREL 10 MG TAB ONE (04:59)
[2023-10-15] MEDS: METOPROLOL TARTRATE 5 MG/5 ML VIAL IVP ONE ×2 (05:00→05:05)
[2023-10-15] MEDS ORDERED: PRASUGREL 10 MG TAB PO ONE (05:00)
[2023-10-15] MEDS: HEPARIN SODIUM 1,000 UN/ML (10ML VL) IV ONE ×2 (05:00→05:30)
[2023-10-15] MEDS ORDERED: MORPHINE SULFATE 4 MG/ML SYRINGE ONE (05:05)
[2023-10-15] MEDS ORDERED: MORPHINE SULFATE 4 MG/ML SYRINGE IVP ONE (05:08)
[2023-10-15] MEDS ORDERED: IOPAMIDOL-370 200ML BTL INJ ONE (05:21)
[2023-10-15] MEDS ORDERED: ZOLPIDEM 5 MG TAB PO PRN (05:27)
[2023-10-15] MEDS ORDERED: RX INFO: IV CONTRAST WAS GIVEN 1 EACH MISC MISCELLANE PRN ×2 (05:27→10:31)
[2023-10-15] MEDS ORDERED: MAG HYDROX/AL HYDROX/SIMETH 30 ML CUP PO PRN (05:27)
[2023-10-15] MEDS ORDERED: NITROGLYCERIN SL TABS 0.4 MG TAB SUBLINGUAL PRN (05:27)
[2023-10-15] MEDS ORDERED: ATROPINE SULFATE 0.1 MG/ML 10ML SYRINGE IV PRN (05:27)
[2023-10-15] MEDS ORDERED: SODIUM CHLORIDE 0.9% 1,000 ML in EMPTY BAG 1 BAG IV SCH (05:30)
--- NOTE | 2023-10-15 05:33 | P.PCN ---
Date of Procedure: 10/15/23 Operative Findings: CARDIAC CATHETERIZATION AND PERCUTANEOUS CORONARY INTERVENTION PERFORMING PHYSICIAN: Heath Echavarria MD, [facility] PROCEDURE PERFORMED: 1. Selective right and left coronary angiogram 2. Left heart catheterization 3. Successful stenting of mid left circumflex using 3.5 x 38 Xience ARABELLA with an excellent angiographic results 4. Adjunctive use of intravascular imaging INDICATION: Acute inferior ST elevation myocardial infarction COMPLICATION: None APPROACH: Right radial artery LEVEL OF SEDATION: Moderate with the sedation time off 33 minutes PROCEDURE DESCRIPTION: After obtaining an informed consent the patient was brought to the cardiac optical laboratory manager. The right radial artery was cannulated using micropuncture technique the micro-puncture wire passed easily then I placed a 6-Divehi sheath in the right radial artery and subsequently to give the patient 2 mg of verapamil intra- arterial and initially 4000 use of heparin and additional 500 units given with ACT monitoring. Subsequently selective right and left coronary angiogram performed using JR4 and JL 3.5 catheters. Left heart catheterization was performed using the JR4 catheter which across aortic valve that I did pulled back across the valve. After that I did intervene on the left circumflex. The procedure was completed was no complication SELECTIVE CORONARY ANGIOGRAM: The right coronary artery: Large caliber vessel and a dominant vessel. The RCA has mild disease in the proximal and midportion. No high-grade stenosis was identified. Distally bifurcates into PDA and PLV branches both appeared to be angiographically normal. Left main: Is angiographically normal. Bifurcates into an LCx and LAD The left circumflex: Large caliber vessel nondominant vessel. The LCx proximity gives rise into a large OM branch which appeared to be normal and then in the midportion is occluded with thrombus burden. The left anterior descending artery: The proximal LAD appears to have mild disease only. The mid and distal LAD also appears to have mild disease only. The LAD gives rises into the first and second diagonal branches both appeared will be having mild disease only. HEMODYNAMICS: LVEDP was 22 mmHg was no significant gradient was identified across aortic valve PCI OF THE LCx: Anticoagulation was initiated using heparin with continuous ACT monitoring as described above. After engaging the left main using JL 3.5 guiding catheter I crossed the lesion in the circumflex using a run-through wire. Predilatation was performed using 2.5 mm balloon. After that I did intravascular ultrasound and that revealed a diameter of the left circumflex about 3.5 mm. I deployed 3.5 x 38 mm stent where the stent was positioned under fluoroscopy guidance and deployed under 12 zaynab. Intravascular ultrasound was performed again and subsequently I postdilated the stent using 4 mm noncompliant balloon with final angiogram showing excellent angiographic result was FAWN-3 flow and the patient was chest pain-free by the end of the procedure was significant EKG improvement/ST segment changes improvement. The procedure was completed was no complication CONCLUSION: Acute total occlusion of the mid left circumflex. I performed successful stenting of the left circumflex as described above Elevated left-sided filling pressure POSTPROCEDURE MANAGEMENT: 1. Dual antiplatelet therapy using aspirin and Effient for 12 month 2. Aggressive cholesterol control 3. Follow-up with the patient
[2023-10-15] MEDS ORDERED: Magnesium Replacement Protocol 1 EACH MISC MISCELLANE PRN (05:37)
[2023-10-15] MEDS ORDERED: Potassium Replacement Protocol 1 EACH MISC MISCELLANE PRN (05:37)
[2023-10-15 05:45] LABS: Glucose,Whole Blood 171 mg/dL (70-110)
[2023-10-15] MEDS ORDERED: hydrALAZINE HCL 20 MG/ML 1 ML VIAL IVP PRN (05:52)
[2023-10-15] MEDS: MAGNESIUM SULFATE-D5W PMX 1 GM in DEXTROSE/WATER 1 100ML.BAG IVPB SCH ×2 (06:25→08:16)
[2023-10-15] MEDS ORDERED: DEXTROSE 50% SYRINGE 50 ML IVP PRN ×2 (06:41)
[2023-10-15 06:57] LABS: Glucose,Whole Blood 172 mg/dL (70-110)
[2023-10-15] MEDS: INSULIN ASPART (NovoLOG) 100 UNIT/ML VIAL SQ SCH ×4 (07:05→19:46)
[2023-10-15] MEDS: ASPIRIN 81 MG PO SCH (08:16)
[2023-10-15] MEDS: lisinopriL 10 MG TAB PO SCH (08:16)
[2023-10-15] MEDS: METOPROLOL TARTRATE 25 MG TAB PO SCH ×2 (08:16→20:19)
--- NOTE | 2023-10-15 10:34 | P.PCN ---
Date of Procedure: 10/15/23 Operative Findings: CARDIAC CATHETERIZATION PERFORMING PHYSICIAN: Heath Echavarria MD, [facility] PROCEDURE PERFORMED: 1. Selective right and left coronary angiogram 2. Left heart catheterization 3. Selective right common femoral artery angiogram and ultrasound guided access of the right common femoral artery INDICATION: Unstable angina COMPLICATION: None APPROACH: Right radial artery LEVEL OF SEDATION: Moderate with the sedation time off 11 minutes PROCEDURE DESCRIPTION: After obtaining an informed consent the patient was brought to the cardiac pit laborer. The right common femoral artery was cannulated using micropuncture technique under ultrasound guidance of Dr. Del Cid wire passed easily then I placed a 6-Urdu sheath. I did selective right and left coronary angiogram using JR4 and JL 4 catheters. The procedure was completed was no complication. Left heart catheterization was performed using a pigtail catheter. Selective right common femoral artery angiogram was performed by the end. Please note that the access of the right common femoral artery was performed using ultrasound guidance SELECTIVE CORONARY ANGIOGRAM: The right coronary artery: Large caliber vessel and a dominant vessel. The RCA has mild disease in the proximal and midportion. No high-grade stenosis was identified. Distally bifurcates into PDA and PLV branches both appeared to be angiographically normal. Left main: Is angiographically normal. Bifurcates into an LCx and LAD The left circumflex: Large caliber vessel nondominant vessel. The stent in the left circumflex is patent was FAWN-3 flow The left anterior descending artery: The proximal LAD appears to have mild disease only. The mid and distal LAD also appears to have mild disease only. The LAD gives rises into the first and second diagonal branches both appeared will be having mild disease only. HEMODYNAMICS: LVEDP was 11 mmHg was no significant gradient was identified across aortic valve CONCLUSION: Patent stent in the left circumflex
[2023-10-15] MEDS ORDERED: IOPAMIDOL-370 100ML BTL INJ ONE (10:37)
[2023-10-15] MEDS ORDERED: SODIUM CHLORIDE 0.9% 1,000 ML IV SCH (10:45)
[2023-10-15] MEDS ORDERED: DULoxetine HCL 30 MG CAPSULE.DR PO SCH (11:15)
[2023-10-15] MEDS ORDERED: LINAGLIPTIN 5 MG TABLET PO SCH (11:15)
[2023-10-15] MEDS: HYDROcodone/APAP 10-325MG 1 EACH TAB PO PRN ×2 (11:37→20:18)
--- NOTE | 2023-10-15 11:54 | P.HPIM ---
History of Present Illness H&P Date: 10/15/23 Chief Complaint: Chest pain This is a 48-year-old white female patient of my nurse practitioner, Oneal, in the office. She reports sudden crushing chest pain with significant burping that woke her up this morning at 1 AM. She came to emergency room was found to have ST changes on her EKG and an abnormal troponin. STEMI alert was called and she was taken for cardiac catheterization. She underwent a stent of the mid left circumflex. She began experiencing jaw and neck pain on the floor short time later and was taken again for recatheterization with no significant changes in findings. She reports being sick with sniffles and sore throat for the past several days before her hospital admission. She is a type II diabetic and takes pain medication as needed along with ibuprofen frequently. Indicate that Lipitor causes myalgia. Review of Systems All systems: negative Past Medical History Past Medical History: Diabetes Mellitus, Hypertension History of Any Multi-Drug Resistant Organisms: None Reported Past Surgical History: Cholecystectomy, Hysterectomy, Orthopedic Surgery Past Anesthesia/Blood Transfusion Reactions: No Reported Reaction Past Psychological History: No Psychological Hx Reported Smoking Status: Current every day smoker Past Alcohol Use History: Rare Past Drug Use History: Marijuana - Past Family History Father Family Medical History: Diabetes Mellitus Additional Family Medical History / Comment(s): Dad following open heart due to clots at 58y/o Mother Family Medical History: Chest Pain / Angina, Diabetes Mellitus Medications and Allergies Home Medications Medication Instructions Recorded Confirmed Type DULoxetine HCL [Cymbalta] 30 mg PO BID 09/03/19 01/21/21 History HYDROcodone/APAP 10-325MG [[place] 1 tab PO Q8H PRN 09/03/19 01/21/21 History 10-325] Ibuprofen [Motrin] 800 mg PO TID PRN 09/03/19 01/21/21 History Linagliptin [Tradjenta] 5 mg PO DAILY 09/03/19 01/21/21 History metFORMIN HCL [Glucophage] 1,000 mg PO BID 09/03/19 01/21/21 History lisinopriL [Prinivil] 10 mg PO DAILY 01/21/21 01/21/21 History Ibuprofen [Motrin] 600 mg PO Q6HR PRN #20 tab 06/30/23 Rx Allergies Allergy/AdvReac Type Severity Reaction Status Date / Time cefaclor [From Ceclor] Allergy Anaphylaxis Verified 10/15/23 03:57 celecoxib [From Celebrex] Allergy Anaphylaxis Verified 10/15/23 03:57 nortriptyline [From Pamelor] Allergy Anaphylaxis Verified 10/15/23 03:57 Physical Exam Vitals: Vital Signs Temp Pulse Pulse Resp BP BP Pulse Ox 10/15/23 11:00 83 19 137/93 90 L 10/15/23 10:30 149/99 10/15/23 10:00 12 149/99 10/15/23 09:30 90 10 L 142/97 92 L 10/15/23 09:00 93 17 154/96 93 L 10/15/23 08:30 87 10 L 152/98 93 L 10/15/23 08:00 98.1 F 89 14 152/98 94 L 10/15/23 07:30 95 11 L 151/103 95 10/15/23 07:00 89 19 170/111 91 L 10/15/23 06:30 92 13 160/103 91 L 10/15/23 06:00 93 18 160/103 91 L 10/15/23 05:45 98.0 F 83 18 168/113 92 L 10/15/23 05:00 98.0 F 92 18 168/113 92 L 10/15/23 04:31 110 H 20 204/130 98 10/15/23 04:29 107 H 20 196/123 98 10/15/23 04:20 112 H 20 197/122 98 10/15/23 04:14 115 H 20 194/154 99 10/15/23 04:09 112 H 20 196/139 99 10/15/23 03:55 98.1 F 106 H 20 202/125 98 Intake and Output 10/14/23 10/15/23 10/15/23 22:59 06:59 14:59 Intake Total 275 475 Output Total 200 150 Balance 75 325 Intake: IV 275 475 Sodium Chloride 0.9% 1, 75 375 000 ml In Empty Bag 1 bag @ 75 mls/hr IV .[id number] [facility] Rx#:[id number] Output: Urine 200 150 Other: Voiding Method Indwelling Catheter # Voids 1 Weight 81.647 kg GENERAL: Pleasant female lying flat in the intensive care unit. She is not in any distress at this time. HEAD: Atraumatic, normocephalic. EYES: Pupils equal round and reactive to light, extraocular movements intact, sclera anicteric, conjunctiva are normal. ENT:nares patent, oropharynx clear without exudates. Moist mucous membranes. NECK: Normal range of motion, supple without lymphadenopathy or JVD, no thyromegaly LUNGS: Breath sounds clear to auscultation bilaterally and equal. No wheezes rales or rhonchi. HEART: Regular rate and rhythm without murmurs, rubs or gallops.S1S2 Normal ABDOMEN: Soft, nontender, normoactive bowel sounds. No guarding, no rebound. No masses appreciated. EXTREMITIES: Normal range of motion, no pitting or edema. No clubbing or cyanosis. NEUROLOGICAL: Cranial nerves II through XII grossly intact. Normal speech, normal gait. PSYCH: Normal mood, normal affect. SKIN: Warm, Dry, normal turgor, no rashes or lesions noted. Results CBC & Chem 7: 10/15/23 04:09 10/15/23 04:09 Labs: Abnormal Lab Results - Last 24 Hours (Table) 10/15/23 10/15/23 10/15/23 Range/Units 04:09 04:09 04:09 WBC 21.2 H (3.8-10.6) k/uL RBC 5.66 H (3.80-5.40) m/uL Hgb 17.4 H (11.4-16.0) gm/dL Hct 50.7 H (34.0-46.0) % Neutrophils # 17.7 H (1.3-7.7) k/uL Glucose 193 H (74-99) mg/dL POC Glucose (mg/dL) (70-110) mg/dL Calcium 10.5 H (8.4-10.2) mg/dL AST 94 H (14-36) U/L ALT 36 H (4-34) U/L Troponin I 3.540 H* (0.000-0.034) ng/mL Total Protein 8.5 H (6.3-8.2) g/dL Albumin 5.1 H (3.5-5.0) g/dL 10/15/23 10/15/23 Range/Units 05:43 06:56 WBC (3.8-10.6) k/uL RBC (3.80-5.40) m/uL Hgb (11.4-16.0) gm/dL Hct (34.0-46.0) % Neutrophils # (1.3-7.7) k/uL Glucose (74-99) mg/dL POC Glucose (mg/dL) 171 H 172 H (70-110) mg/dL Calcium (8.4-10.2) mg/dL AST (14-36) U/L ALT (4-34) U/L Troponin I (0.000-0.034) ng/mL Total Protein (6.3-8.2) g/dL Albumin (3.5-5.0) g/dL Chest x-ray: report reviewed Thrombosis Risk Factor Assmnt - DVT/VTE Prophylaxis DVT/VTE Prophylaxis: Low risk, early ambulation encouraged - Choose All That Apply Any of the Below Risk Factors Present?: Yes Each Factor Represents 1 point: Acute NH, Age 41-60 years Other Risk Factors: No Other congenital or acquired thrombophilia - If yes, enter type in comment: No Thrombosis Risk Factor Assessment Total Risk Factor Score: 2 Thrombosis Risk Factor Assessment Level: Low Risk Assessment and Plan (1) Type 2 diabetes mellitus with other circulatory complications Current Visit: Yes Status: Acute Code(s): E11.59 - TYPE 2 DIABETES MELLITUS WITH OTH CIRCULATORY COMPLICATIONS SNOMED Code(s): 52172490 (2) Type 2 diabetes mellitus with other specified complication Current Visit: Yes Status: Acute Code(s): E11.69 - TYPE 2 DIABETES MELLITUS WITH OTHER SPECIFIED COMPLICATION SNOMED Code(s): 17235656 (3) Essential (primary) hypertension Current Visit: Yes Status: Acute Code(s): I10 - ESSENTIAL (PRIMARY) HYPERTENSION SNOMED Code(s): 23855187 (4) Mixed hyperlipidemia Current Visit: Yes Status: Acute Code(s): E78.2 - MIXED HYPERLIPIDEMIA SNOMED Code(s): 398169619 (5) CAD (coronary artery disease) Current Visit: Yes Status: Acute Code(s): I25.10 - ATHSCL HEART DISEASE OF [place] CORONARY ARTERY W/O ANG PCTRS SNOMED Code(s): 14681922 (6) STEMI (ST elevation myocardial infarction) Current Visit: Yes Status: Acute Code(s): I21.3 - ST ELEVATION (STEMI) MYOCARDIAL INFARCTION OF UNSP SITE SNOMED Code(s): 89958493 (7) Unstable angina Current Visit: No Status: Acute Code(s): I20.0 - UNSTABLE ANGINA SNOMED Code(s): 2025836 (8) Smoker Current Visit: Yes Status: Acute Code(s): F17.200 - NICOTINE DEPENDENCE, UNSPECIFIED, UNCOMPLICATED SNOMED Code(s): 53609345 Plan: Restart patient's home medications. Will hold her metformin at this time though NovoLog scale and Accu-Cheks before meals and at bedtime. Cardiology notes and medication changes reviewed. Will discontinue Tradjenta and start her on Jardiance at this time 10 mg daily. Remain in intensive care unit without further recommendations per cardiology. Should be reevaluated in the next 24 hours
--- NOTE | 2023-10-15 13:25 | P.PN ---
Subjective Progress Note Date: 10/15/23 Principal diagnosis: Coronary artery disease The patient is a 48-year-old female patient was hypertension and dysrhythmia smoking who presented earlier with chest discomfort and was diagnosed with acute inferior ST elevation myocardial infarction and she underwent emergently suc cessful stenting of the left circumflex coronary artery. Subsequently she was chest pain-free. But then she started extrinsic chest discomfort again associated with ST segment elevation and she was taken again to the cardiac landscape laborer where she underwent a coronary angiogram at that revealed patent stent in the left circumflex coronary artery. The echo is still pending. Currently she is chest pain-free. Stable hemodynamically she is on dual antiplatelet therapy along with high intensity statin along with beta alexander and GALLO inhibitor. Examination is remarkable for regular rhythm with a clear breathing sounds bilaterally and no edema was noted in the lower extremities Assessment Acute inferior ST elevation myocardial infarction Status post PCI of the circumflex Smoking/hypertension/dyslipidemia Plan Continue the current medical regimen as above Follow-up with the patient Follow-up with the echocardiogram Objective - Vital Signs Vital signs: Vital Signs Temp 98.1 F 10/15/23 08:00 Pulse 84 10/15/23 12:00 Resp 20 10/15/23 12:00 BP 143/97 10/15/23 12:00 Pulse Ox 93 L 10/15/23 12:00 FiO2 Intake & Output 10/14/23 10/15/23 10/15/23 18:59 06:59 18:59 Intake Total 275 550 Output Total 200 150 Balance 75 400 Weight 81.647 kg Intake: IV 275 550 Sodium Chloride 0.9% 1, 75 450 000 ml In Empty Bag 1 bag @ 75 mls/hr IV .[id number] [facility] Rx#:[id number] Output: Urine 200 150 Other: Voiding Method Indwelling Catheter Toilet # Voids 1 - Labs CBC & Chem 7: 10/15/23 04:09 10/15/23 04:09 Labs: Abnormal Lab Results - Last 24 Hours (Table) 10/15/23 10/15/23 10/15/23 Range/Units 04:09 04:09 04:09 WBC 21.2 H (3.8-10.6) k/uL RBC 5.66 H (3.80-5.40) m/uL Hgb 17.4 H (11.4-16.0) gm/dL Hct 50.7 H (34.0-46.0) % Neutrophils # 17.7 H (1.3-7.7) k/uL Glucose 193 H (74-99) mg/dL POC Glucose (mg/dL) (70-110) mg/dL Calcium 10.5 H (8.4-10.2) mg/dL AST 94 H (14-36) U/L ALT 36 H (4-34) U/L Troponin I 3.540 H* (0.000-0.034) ng/mL Total Protein 8.5 H (6.3-8.2) g/dL Albumin 5.1 H (3.5-5.0) g/dL 10/15/23 10/15/23 Range/Units 05:43 06:56 WBC (3.8-10.6) k/uL RBC (3.80-5.40) m/uL Hgb (11.4-16.0) gm/dL Hct (34.0-46.0) % Neutrophils # (1.3-7.7) k/uL Glucose (74-99) mg/dL POC Glucose (mg/dL) 171 H 172 H (70-110) mg/dL Calcium (8.4-10.2) mg/dL AST (14-36) U/L ALT (4-34) U/L Troponin I (0.000-0.034) ng/mL Total Protein (6.3-8.2) g/dL Albumin (3.5-5.0) g/dL
[2023-10-15] MEDS: ATORVASTATIN 80 MG TAB PO SCH (20:18)
[2023-10-16] MEDS ORDERED: SODIUM CHLORIDE 0.9% 250 ML IV SCH (00:15)
[2023-10-16 04:10] LABS: Basophils # (A) 0.1 k/uL (0-0.2); Basophils % (A) 1 %; Eosinophils # (A) 0.2 k/uL (0-0.7); Eosinophils % (A) 1 %; HCT 41.9 % (34.0-46.0); Lymphocytes # (A) 4.5 k/uL (1.0-4.8); Lymphocytes % (A) 33 %; MCH 31.3 pg (25.0-35.0); MCV 92.2 fL (80.0-100.0); Mean Platelet Volume 9.1; Monocytes # (A) 0.9 k/uL (0-1.0); Monocytes % (A) 7 %; Neutrophils # (A) 7.7 k/uL (1.3-7.7); Neutrophils % (A) 57 %; Platelet Count 142 k/uL (150-450); RBC 4.55 m/uL (3.80-5.40); RDW 13.1 % (11.5-15.5); WBC 13.6 k/uL (3.8-10.6)
[2023-10-16 04:15] LABS: HGB 14.2 gm/dL (11.4-16.0)
[2023-10-16 06:06] LABS: ALT 62 U/L (4-34); AST 260 U/L (14-36); African American GFR (CKD) >90 (>60 ml/min/1.73 sqM); Albumin 3.6 g/dL (3.5-5.0); Alkaline Phosphatase 76 U/L (38-126); Anion Gap 6 mmol/L; Blood Urea Nitrogen 15 mg/dL (7-17); Calcium 8.6 mg/dL (8.4-10.2); Carbon Dioxide 23 mmol/L (22-30); Chloride 109 mmol/L (98-107); Glucose 110 mg/dL (74-99); Magnesium 2.2 mg/dL (1.6-2.3); Non-African American GFR(CKD) >90 (>60 ml/min/1.73 sqM); Potassium 4.1 mmol/L (3.5-5.1); Sodium 138 mmol/L (137-145); Total Protein 6.3 g/dL (6.3-8.2)
[2023-10-16] MEDS: INSULIN ASPART (NovoLOG) 100 UNIT/ML VIAL SQ SCH ×4 (06:48→21:19)
[2023-10-16] MEDS: lisinopriL 10 MG TAB PO SCH (08:48)
[2023-10-16] MEDS: DULoxetine HCL 30 MG CAPSULE.DR PO SCH (08:48)
[2023-10-16] MEDS: ASPIRIN 81 MG PO SCH (08:48)
[2023-10-16] MEDS: PRASUGREL 10 MG TAB PO SCH (08:48)
[2023-10-16] MEDS: METOPROLOL TARTRATE 25 MG TAB PO SCH ×2 (08:48→21:21)
[2023-10-16] MEDS: DAPAGLIFLOZIN PROPANEDIOL 5 MG TABLET PO SCH (08:48)
[2023-10-16 10:25] VITALS: BMI 33.4
--- NOTE | 2023-10-16 13:12 | P.PN ---
Subjective Progress Note Date: 10/16/23 H&P Date: 10/15/23 Chief Complaint: Chest pain This is a 48-year-old white female patient of my nurse practitioner, Oneal, in the office. She reports sudden crushing chest pain with significant burping that woke her up this morning at 1 AM. She came to emergency room was found to have ST changes on her EKG and an abnormal troponin. STEMI alert was called and she was taken for cardiac catheterization. She underwent a stent of the mid left circumflex. She began experiencing jaw and neck pain on the floor short time later and was taken again for recatheterization with no significant changes in findings. She reports being sick with sniffles and sore throat for the past several days before her hospital admission. She is a type II diabetic and takes pain medication as needed along with ibuprofen frequently. Indicate that Lipitor causes myalgia. 10/16/2023 maintained on beta alexander, GALLO inhibitor ,dual antiplatelet therapy ,high intensity statin. significant clinical improvement. Reports in the past she has not been able to tolerate lipitor. Telemetry sinus rhythm. Ambulating, showered, tolerating exertion well. Denies chest pain, palpitations or shortness of breath. Patient has been downgraded to telemetry. Blood sugars controlled. Objective - Vital Signs Vital signs: Vital Signs Temp 98.7 F 10/16/23 08:00 Pulse 113 H 10/16/23 09:00 Resp 20 10/16/23 09:00 BP 106/68 10/16/23 09:00 Pulse Ox 95 10/16/23 09:00 FiO2 Intake & Output 10/15/23 10/16/23 10/16/23 18:59 06:59 18:59 Intake Total 700 250 Output Total 650 0 Balance 50 250 Weight 85.6 kg 85.6 kg Intake: IV 700 250 Sodium Chloride 0.9% 1, 600 000 ml In Empty Bag 1 bag @ 75 mls/hr IV .[id number] [facility] Rx#:[id number] Sodium Chloride 0.9% 250 250 ml @ 999 mls/hr IV .Q16M [facility] Rx#:[id number] Output: Urine 650 0 Other: Voiding Method Toilet Toilet Toilet # Voids 1 0 0 - Exam GENERAL: Alert and oriented 3, sitting up in bed, no acute distress. HEAD: Atraumatic, normocephalic. EYES: Normocephalic, Pupils equal round and reactive to light, extraocular movements intact, sclera anicteric, conjunctiva are normal. ENT: oropharynx clear without exudates. Moist mucous membranes. NECK: Normal range of motion, supple without lymphadenopathy or JVD, no thyromegaly LUNGS: Unlabored, Breath sounds clear to auscultation bilaterally and equal. No wheezes rales or rhonchi. HEART: Regular rate and rhythm without murmurs, rubs or gallops.S1S2 Normal ABDOMEN: Soft, nontender, normoactive bowel sounds. No guarding, no rebound. No masses appreciated. EXTREMITIES: Normal range of motion, no pitting or edema. No clubbing or cyanosis. NEUROLOGICAL: Cranial nerves II through XII grossly intact. Normal speech, normal gait. PSYCH: Normal mood, normal affect. SKIN: Warm, Dry, normal turgor, no rashes or lesions noted. - Labs CBC & Chem 7: 10/16/23 03:45 10/16/23 03:45 Labs: Abnormal Lab Results - Last 24 Hours (Table) 10/16/23 10/16/23 10/16/23 Range/Units 03:45 03:45 03:45 WBC 13.6 H (3.8-10.6) k/uL Plt Count 142 L (150-450) k/uL Chloride 109 H (98-107) mmol/L Glucose 110 H (74-99) mg/dL Hemoglobin A1c 6.1 H (<=6.0) % AST 260 H (14-36) U/L ALT 62 H (4-34) U/L Assessment and Plan Assessment: (1) Type 2 diabetes mellitus with other circulatory complications Current Visit: Yes Status: Acute Code(s): E11.59 - TYPE 2 DIABETES MELLITUS WITH OTH CIRCULATORY COMPLICATIONS SNOMED Code(s): 97232723 (2) Type 2 diabetes mellitus with other specified complication Current Visit: Yes Status: Acute Code(s): E11.69 - TYPE 2 DIABETES MELLITUS WITH OTHER SPECIFIED COMPLICATION SNOMED Code(s): 43684409 (3) Essential (primary) hypertension Current Visit: Yes Status: Acute Code(s): I10 - ESSENTIAL (PRIMARY) HYPERTENSION SNOMED Code(s): 71044338 (4) Mixed hyperlipidemia Current Visit: Yes Status: Acute Code(s): E78.2 - MIXED HYPERLIPIDEMIA SNOMED Code(s): 639658378 (5) CAD (coronary artery disease) Current Visit: Yes Status: Acute Code(s): I25.10 - ATHSCL HEART DISEASE OF [place] CORONARY ARTERY W/O ANG PCTRS SNOMED Code(s): 57111220 (6) STEMI (ST elevation myocardial infarction) Current Visit: Yes Status: Acute Code(s): I21.3 - ST ELEVATION (STEMI) MY OCARDIAL INFARCTION OF UNSP SITE SNOMED Code(s): 82549254 (7) Unstable angina Current Visit: No Status: Acute Code(s): I20.0 - UNSTABLE ANGINA SNOMED Code(s): 0579498 (8) Smoker Current Visit: Yes Status: Acute Code(s): F17.200 - NICOTINE DEPENDENCE, U NSPECIFIED, UNCOMPLICATED SNOMED Code(s): 65327543 Plan: Restart patient's home medications. Will hold her metformin at this time though NovoLog scale and Accu-Cheks before meals and at bedtime. Cardiology notes and medication changes reviewed. Will discontinue Tradjenta and start her on Jardiance at this time 10 mg daily. Remain in intensive care unit without further recommendations per cardiology. Should be reevaluated in the next 24 hours 10/16/2023 awaiting available bed on stepdown. Discharge planning in progress pending final DC recommendations and clearance per cardiology. The patient reports difficulty with taking Lipitor, consider changing over to Crestor if okay with cardiology. The impression and plan of care has been dictated as directed. : I performed a history and examination of this patient, discussed the same with the dictator. I agree with the dictator's note ,documented as a scribe. Any additional findings or plans will be noted.
[2023-10-16] MEDS: HYDROcodone/APAP 10-325MG 1 EACH TAB PO PRN ×2 (13:16→21:21)
--- NOTE | 2023-10-16 14:40 | CA ---
Transthoracic Echo Report Name: Shila Landa Age: 48 Gender: F : 1975 Exam Date: 10/16/2023 08:05 Exam Location: [place] [facility] Ht (in): 63 Wt (lb): 180 Ordering Physician: Heath Echavarria MD ([id number]) Attending/Referring Phys: Cash Application Clerk Karen Aranda, [id number] Procedure CPT: Indications: ACS Cardiac Hx: smoker, DM Technical Quality: Fair Contrast 1: Total Dose (mL): Contrast 2: Total Dose (mL): MEASUREMENTS (Male / Female) Normal Values 2D ECHO LV Diastolic Diameter PLAX 4.5 cm 4.2 - 5.9 / 3.9 - 5.3 cm LV Systolic Diameter PLAX 3.2 cm IVS Diastolic Thickness 1.4 cm 0.6 - 1.0 / 0.6 - 0.9 cm LVPW Diastolic Thickness 1.4 cm 0.6 - 1.0 / 0.6 - 0.9 cm LV Relative Wall Thickness 0.6 RV Internal Dim ED PLAX 3.1 cm LA Systolic Diameter LX 4.3 cm 3.0 - 4.0 / 2.7 - 3.8 cm LV Diastolic Volume MOD 4C 119.5 cm??? LV Systolic Volume MOD 4C 56.6 cm??? LV Ejection Fraction MOD 4C 52.7 % LV Cardiac Index MOD 4C 2924.1 cm???/min???m??? LV Diastolic Length 4C 8.5 cm LV Systolic Length 4C 7.0 cm LV Diastolic Volume MOD 2C 42.0 cm??? LV Systolic Volume MOD 2C 14.6 cm??? LV Ejection Fraction MOD 2C 65.3 % LV Cardiac Index MOD 2C 1276.6 cm???/min???m??? LV Diastolic Length 2C 7.6 cm LV Systolic Length 2C 6.7 cm LA Volume 54.8 cm??? 18 - 58 / 22 - 52 cm??? LA Volume Index 28.3 cm???/m??? 16 - 28 cm???/m??? M-MODE Aortic Root Diameter MM 3.0 cm MV E Point Septal Separation 0.5 cm AV Cusp Separation MM 2.2 cm DOPPLER AV Peak Velocity 159.4 cm/s AV Peak Gradient 10.2 mmHg MV Area PHT 2.9 cm??? Mitral E Point Velocity 81.5 cm/s Mitral A Point Velocity 92.8 cm/s Mitral E to A Ratio 0.9 MV Deceleration Time 264.4 ms MV E' Velocity 6.7 cm/s Mitral E to MV E' Ratio 12.1 TR Peak Velocity 236.0 cm/s TR Peak Gradient 22.3 mmHg Right Ventricular Systolic Press 25.7 mmHg FINDINGS Left Ventricle Left ventricular ejection fraction is estimated at 55-60 %. Left ventricular cavity size normal. Moderately increased septal wall thickness. Moderately increased posterior wall thickness. Right Ventricle Normal right ventricular size. Right ventricular systolic pressure within normal limits. Right Atrium Normal right atrial size. Left Atrium Mildly increased left atrial diameter. Mildly increased left atrial volume. Mildly increased left atrial area. Mitral Valve Structurally normal mitral valve. Structurally normal mitral valve. No mitral stenosis, regurgitation or prolapse. Aortic Valve Trileaflet aortic valve. No aortic valve stenosis or regurgitation. Tricuspid Valve Structurally normal tricuspid valve. Mild tricuspid regurgitation. Pulmonic Valve Pulmonic valve not well visualized. No pulmonic regurgitation. Pericardium No pericardial effusion. Aorta Normal size aortic root and proximal ascending aorta. CONCLUSIONS Normal LV size and systolic function. LVEF estimated at 55% next and moderate concentric LVH No obvious regional wall motion abnormality Mild left atrial dilatation No significant valvular dysfunction No pericardial effusion Previewed by: Dr Cm Casey (Electronically Signed) Final Date: 16 October 2023 14:39
--- NOTE | 2023-10-16 14:42 | P.PN ---
Subjective Progress Note Date: 10/16/23 Coronary artery disease The patient is a 48-year-old female patient was hypertension and dysrhythmia isela mcdowell who presented earlier with chest discomfort and was diagnosed with acute inferior ST elevation myocardial infarction and she underwent emergently successful stenting of the left circumflex coronary artery. Subsequently she was chest pain-free. But then she started extrinsic chest discomfort again associated with ST segment elevation and she was taken again to the cardiac environmental laboratory technician where she underwent a coronary angiogram at that revealed patent stent in the left circumflex coronary artery. The echo is still pending. Currently she is chest pain-free. Stable hemodynamically she is on dual antiplatelet therapy along with high intensity statin along with beta alexander and GALLO inhibitor. Examination is remarkable for regular rhythm with a clear breathing sounds bilaterally and no edema was noted in the lower extremities Emergent cardiac catheterization showed 100% mid LCx stenosis status post successful PCI with drug-eluting stent. Follow-up echocardiogram showed preserved LV size and systolic function with no major wall motion abnormality on major structural abnormality or valvular heart disease. Assessment Acute inferior ST elevation myocardial infarction Status post PCI of the circumflex Smoking/hypertension/dyslipidemia Plan Continue aspirin, Effient, metoprolol 25 mg twice a day, Lipitor 80 mg Reduce lisinopril to 5 mg daily. If blood pressure is still low, may di scontinue it. We will monitor patient for overnight. If stays hemodynamically stable with no further chest pains episodes, she is cleared to be discharged tomorrow a.m. She is okay to be moved out of ICU Smoking cessation Objective - Vital Signs Vital signs: Vital Signs Temp 98.2 F 10/16/23 12:00 Pulse 81 10/16/23 12:00 Resp 16 10/16/23 12:00 BP 104/71 10/16/23 12:00 Pulse Ox 96 10/16/23 12:00 FiO2 Intake & Output 10/15/23 10/16/23 10/16/23 18:59 06:59 18:59 Intake Total 700 250 Output Total 650 0 Balance 50 250 Weight 85.6 kg 85.6 kg Intake: IV 700 250 Sodium Chloride 0.9% 1, 600 000 ml In Empty Bag 1 bag @ 75 mls/hr IV .[id number] [facility] Rx#:[id number] Sodium Chloride 0.9% 250 250 ml @ 999 mls/hr IV .Q16M [facility] Rx#:[id number] Output: Urine 650 0 Other: Voiding Method Toilet Toilet Toilet # Voids 1 0 0 - Labs CBC & Chem 7: 10/16/23 03:45 10/16/23 03:45 Labs: Abnormal Lab Results - Last 24 Hours (Table) 10/16/23 10/16/23 10/16/23 Range/Units 03:45 03:45 03:45 WBC 13.6 H (3.8-10.6) k/uL Plt Count 142 L (150-450) k/uL Chloride 109 H (98-107) mmol/L Glucose 110 H (74-99) mg/dL Hemoglobin A1c 6.1 H (<=6.0) % AST 260 H (14-36) U/L ALT 62 H (4-34) U/L
[2023-10-16] MEDS: ATORVASTATIN 80 MG TAB PO SCH (21:21)
[2023-10-17] MEDS: INSULIN ASPART (NovoLOG) 100 UNIT/ML VIAL SQ SCH ×2 (06:57→11:09)
[2023-10-17] MEDS: PRASUGREL 10 MG TAB PO SCH (08:38)
[2023-10-17] MEDS: ASPIRIN 81 MG PO SCH (08:38)
[2023-10-17] MEDS: METOPROLOL TARTRATE 25 MG TAB PO SCH (08:38)
[2023-10-17] MEDS: DULoxetine HCL 30 MG CAPSULE.DR PO SCH (08:39)
[2023-10-17] MEDS: DAPAGLIFLOZIN PROPANEDIOL 5 MG TABLET PO SCH (08:39)
[2023-10-17] MEDS: HYDROcodone/APAP 10-325MG 1 EACH TAB PO PRN (08:41)
[2023-10-17] MEDS ORDERED: lisinopriL 5 MG TAB PO SCH (09:00)
[2023-10-17 09:53] VITALS: RESP 16
[2023-10-17 13:25] VITALS: BP 106/68; PULSE 72; TEMP 98.4
--- NOTE | 2023-10-17 15:41 | P.DS ---
Providers Date of admission: 10/15/23 04:41 Expected date of discharge: 10/17/23 Attending physician: Eugenio Harden Consults: 10/15/23 04:37 Consult Physician Routine Consulting Provider: Kirk Horton Consult Reason/Comments: stemi Do you want consulting provider notified?: Already Contacted 10/15/23 05:27 Consult Physician Routine Consulting Provider: Kirk Horton Consult Reason/Comments: Post Interventional patient Do you want consulting provider notified?: Already Contacted Primary care physician: [facility] Course: Final Diagnoses: Acute inferior STEMI, status post PCI of the circumflex Nicotine dependence, ongoing counseling Hypertension Dyslipidemia Diabetes mellitus Hospital course:This is a 48-year-old white female patient of my nurse practitioner, Oneal, in the office. She reports sudden crushing chest pain with significant burping that woke her up this morning at 1 AM. She came to emergency room was found to have ST changes on her EKG and an abnormal troponin. STEMI alert was called and she was taken for cardiac catheterization. She underwent a stent of the mid left circumflex. She began experiencing jaw and neck pain on the floor short time later and was taken again for recatheterization with no significant changes in findings. She reports being sick with sniffles and sore throat for the past several days before her hospital admission. She is a type II diabetic and takes pain medication as needed along with ibuprofen frequently. Indicate that Lipitor causes myalgia. 10/16/2023 maintained on beta alexander, GALLO inhibitor ,dual antiplatelet therapy ,high intensity statin. significant clinical improvement. Reports in the past she has not been able to tolerate lipitor. Telemetry sinus rhythm. Ambulating, showered, tolerating exertion well. Denies chest pain, palpitations or shortness of breath. Patient has been downgraded to telemetry. Blood sugars controlled. Significant clinical improvement. Denies chest pain, palpitations or shortness of breath. GALLO inhibitor discontinued secondary to soft blood pressures. Unable to tolerate Lipitor per prior history and cardiology gave permission for Crestor 20 mg daily at [facility]. Cleared by cardiology for discharge. Patient will be discharged home today in stable condition with guarded prognosis. The impression and plan of care has been dictated as directed. : I performed a history and examination of this patient, discussed the same with the dictator. I agree with the dictator's note ,documented as a scribe. Any additional findings or plans will be noted. Patient Condition at Discharge: Stable Plan - Discharge Summary Discharge Rx Participant: Yes New Discharge Prescriptions: New Aspirin 81 mg PO DAILY #30 tab Rosuvastatin [Crestor] 20 mg PO DAILY #30 tablet Prasugrel [Effient] 10 mg PO DAILY #30 tab Dapagliflozin Propanediol [Farxiga] 5 mg PO DAILY #30 tab Metoprolol Tartrate [Lopressor] 25 mg PO BID #60 tab Nitroglycerin Sl Tabs [Nitrostat] 0.4 mg SUBLINGUAL Q5M PRN #100 tab PRN Reason: Chest Pain Continue HYDROcodone/APAP 10-325MG [[place] 10-325] 1 tab PO Q8H PRN PRN Reason: Pain DULoxetine HCL [Cymbalta] 30 mg PO DAILY metFORMIN HCL [Glucophage] 1,000 mg PO BID Dulaglutide [Trulicity] 4.5 mg SQ SA Docusate [Colace] 100 mg PO DAILY PRN PRN Reason: Constipation Melatonin 10 mg PO HS PRN PRN Reason: SLEEP Insulin Lispro [Insulin Lispro Kwikpen U-100] See Protocol SQ AC-TID PRN PRN Reason: HIGH BLOOD SUGAR No Action Ondansetron [Zofran] 4 mg PO TID PRN PRN Reason: Nausea Discharge Medication List DULoxetine HCL [Cymbalta] 30 mg PO DAILY 09/03/19 [History] HYDROcodone/APAP 10-325MG [[place] 10-325] 1 tab PO Q8H PRN 09/03/19 [History] metFORMIN HCL [Glucophage] 1,000 mg PO BID 09/03/19 [History] Docusate [Colace] 100 mg PO DAILY PRN 10/15/23 [History] Dulaglutide [Trulicity] 4.5 mg SQ SA 10/15/23 [History] Insulin Lispro [Insulin Lispro Kwikpen U-100] See Protocol SQ AC-TID PRN 10/15/23 [History] Melatonin 10 mg PO HS PRN 10/15/23 [History] Ondansetron [Zofran] 4 mg PO TID PRN 10/15/23 [History] Aspirin 81 mg PO DAILY #30 tab 10/17/23 [Rx] Dapagliflozin Propanediol [Farxiga] 5 mg PO DAILY #30 tab 10/17/23 [Rx] Metoprolol Tartrate [Lopressor] 25 mg PO BID #60 tab 10/17/23 [Rx] Nitroglycerin Sl Tabs [Nitrostat] 0.4 mg SUBLINGUAL Q5M PRN #100 tab 10/17/23 [Rx] Prasugrel [Effient] 10 mg PO DAILY #30 tab 10/17/23 [Rx] Rosuvastatin [Crestor] 20 mg PO DAILY #30 tablet 10/17/23 [Rx] Follow up Appointment(s)/Referral(s): Heath Echavarria MD [STAFF PHYSICIAN] - 1 Week (office will call pt to schedule appt.) Phil Arambula Jr, DO [Primary Care Provider] - 10/23/23 3:15 am Activity/Diet/Wound Care/Special Instructions: Confirm follow-up with cardiology prior to discharge. Discharge Disposition: HOME SELF-CARE
== END 2023-10-17 13:37 | disposition home or self-care (01) | DRG 174 ==
LOC: EC 03:53 → 2SICU 04:41
PROVIDERS: ADMIT Family Medicine; ATTEND Family Medicine
PROC: 027034Z Dilation of Coronary Artery, One Artery with Drug-eluting Intraluminal Device, Percutaneous Approach (ICD-10-PCS; principal; 2023-10-15 04:31)
PROC: B2111ZZ Fluoroscopy of Multiple Coronary Arteries using Low Osmolar Contrast (ICD-10-PCS; principal; 2023-10-15 04:31)
PROC: 4A023N7 Measurement of Cardiac Sampling and Pressure, Left Heart, Percutaneous Approach (ICD-10-PCS; principal; 2023-10-15 04:31)
DX: I21.19 ST elevation (STEMI) myocardial infarction involving other coronary artery of inferior wall (principal); I25.10 Atherosclerotic heart disease of native coronary artery without angina pectoris; I10 Essential (primary) hypertension; F17.200 Nicotine dependence, unspecified, uncomplicated; E78.2 Mixed hyperlipidemia; E11.59 Type 2 diabetes mellitus with other circulatory complications; Z28.311 Partially vaccinated for COVID-19; Z71.3 Dietary counseling and surveillance; Z83.3 Family history of diabetes mellitus; Z79.899 Other long term (current) drug therapy; Z79.84 Long term (current) use of oral hypoglycemic drugs; Z86.711 Personal history of pulmonary embolism
CPT/HCPCS: 36415; 71045; 76937; 80053; 83036; 83735; 84443; 84484; 85025; 85610; 85730; 92978; 93005; 93306; 93458; 94760; 96361; 96374; 96375; 99285

== ENCOUNTER 2023-12-08 22:18 | Emergency (ER) | payer OTHER ==
--- NOTE | 2023-12-08 22:37 | ED ---
Chest Pain HPI - General Chief Complaint: Chest Pain Stated Complaint: high BP jaw tightness dizzy Time Seen by Provider: 12/08/23 22:27 Source: patient Mode of arrival: ambulatory Limitations: no limitations - History of Present Illness Initial Comments: 48-year-old female presenting to the ED with a chief complaint of jaw tightness. Patient states that around 3 PM today started to experience tightness of her jaw and also felt dizzy stating she felt that she was going to pass out. Also did note that she took her blood pressure at home and found to be high and therefore she took a metoprolol. Patient states symptoms are still ongoing prompting presentation to the ED for further evaluation. Of note patient recently had STEMI and is status post stenting of left circumflex. Patient is on Pasugrel. - Related Data Home Medications Medication Instructions Recorded Confirmed DULoxetine HCL [Cymbalta] 30 mg PO DAILY 09/03/19 10/15/23 HYDROcodone/APAP 10-325MG [[place] 1 tab PO Q8H PRN 09/03/19 10/15/23 10-325] metFORMIN HCL [Glucophage] 1,000 mg PO BID 09/03/19 10/15/23 Docusate [Colace] 100 mg PO DAILY PRN 10/15/23 10/15/23 Dulaglutide [Trulicity] 4.5 mg SQ SA 10/15/23 10/15/23 Insulin Lispro [Insulin Lispro See Protocol SQ AC-TID PRN 10/15/23 10/15/23 Kwikpen U-100] Melatonin 10 mg PO HS PRN 10/15/23 10/15/23 Ondansetron [Zofran] 4 mg PO TID PRN 10/15/23 10/15/23 Previous Rx's Medication Instructions Recorded Aspirin 81 mg PO DAILY #30 tab 10/17/23 Dapagliflozin Propanediol [Farxiga] 5 mg PO DAILY #30 tab 10/17/23 Metoprolol Tartrate [Lopressor] 25 mg PO BID #60 tab 10/17/23 Nitroglycerin Sl Tabs [Nitrostat] 0.4 mg SUBLINGUAL Q5M PRN #100 tab 10/17/23 Prasugrel [Effient] 10 mg PO DAILY #30 tab 10/17/23 Rosuvastatin [Crestor] 20 mg PO DAILY #30 tablet 10/17/23 Allergies Allergy/AdvReac Type Severity Reaction Status Date / Time cefaclor [From Ceclor] Allergy Anaphylaxis Verified 12/08/23 22:24 celecoxib [From Celebrex] Allergy Anaphylaxis Verified 12/08/23 22:24 nortriptyline [From Pamelor] Allergy Anaphylaxis Verified 12/08/23 22:24 Review of Systems ROS Statement: Those systems with pertinent positive or pertinent negative responses have been documented in the HPI. ROS Other: All systems not noted in ROS Statement are negative. Past Medical History Past Medical History: Diabetes Mellitus, Hypertension Additional Past Medical History / Comment(s): [place]- October of 2023- with Stent History of Any Multi-Drug Resistant Organisms: None Reported Past Surgical History: Cholecystectomy, Heart Catheterization With Stent, Hysterectomy, Orthopedic Surgery Past Anesthesia/Blood Transfusion Reactions: No Reported Reaction Past Psychological History: No Psychological Hx Reported Smoking Status: Current every day smoker Past Alcohol Use History: Rare Past Drug Use History: Marijuana - Past Family History Father Family Medical History: Diabetes Mellitus Additional Family Medical History / Comment(s): Dad following open heart due to clots at 58y/o Mother Family Medical History: Chest Pain / Angina, Diabetes Mellitus General Exam Limitations: no limitations Course Vital Signs 12/08/23 12/09/23 22:19 00:30 Temperature 98.6 F Pulse Rate 99 80 Respiratory 18 18 Rate Blood Pressure 144/83 125/75 O2 Sat by Pulse 96 98 Oximetry Chest Pain MDM - MDM Was pt. sent in by a medical professional or institution (, PA, CHIEF SCIENCE OFFICER, urgent care, hospital, or senior living...) When possible be specific @ -No Did you speak to anyone other than the patient for history (EMS, parent, family, police, friend...)? What history was obtained from this source @ -No Did you review nursing and triage notes (agree or disagree)? Why? @ -I reviewed and agree with nursing and triage notes Were old charts reviewed (outside hosp., previous admission, EMS record, old EKG, old radiological studies, urgent care reports/EKG's, senior living records)? Report findings @ -Prior charts reviewed showing history of STEMI s/p stent of the left circumflex Differential Diagnosis (chest pain, altered mental status, abdominal pain women, abdominal pain men, vaginal bleeding, weakness, fever, dyspnea, syncope, headache, dizziness, GI bleed, back pain, seizure, CVA, palpatations, mental health, musculoskeletal)? @ -Differential Chest Pain: Stable Angina, Unstable Angina, STEMI, NSTEMI Aortic Dissection, Pneumothorax, Musculoskeletal, Esophageal Spasm GERD, Cholecystitis, Pancreatitis, Zoster, this is not meant to be an all-inclusive list. EKG interpreted by me (3pts min.). @ -EKG interpreted by me showing a sinus rhythm with nonspecific findings at a rate of 86 bpm. W[place] 155, QRS 81, QT/QTc 343/386. X-rays interpreted by me (1pt min.). @ -None done CT interpreted by me (1pt min.). @ -None done U/S interpreted by me (1pt. min.). @ -None done What testing was considered but not performed or refused? (CT, X-rays, U/S, labs)? Why? @ -None What meds were considered but not given or refused? Why? @ -Patient was to be provided nitro however patient at this time declines as she reports this gives her a headache. Did you discuss the management of the patient with other professionals (professionals i.e. , PA, CHIEF SCIENCE OFFICER, lab, RT, psych nurse, social insurance administrator, toe laster, teacher, control officer manager, skilled nursing case manager)? Give summary @ -No Was smoking cessation discussed for >3mins.? @ -No Was critical care preformed (if so, how long)? @ -No Were there social determinants of health that impacted care today? How? (Homelessness, low income, unemployed, alcoholism, drug addiction, transportation, low edu. Level, literacy, decrease access to med. care, halfway, rehab)? @ -No Was there de-escalation of care discussed even if they declined (Discuss DNR or withdrawal of care, Hospice)? DNR status @ -No What co-morbidities impacted this encounter? (DM, HTN, Smoking, COPD, CAD, Cancer, CVA, ARF, Chemo, Hep., AIDS, mental health diagnosis, sleep apnea, morbid obesity)? @ -Coronary artery disease status post stenting Was patient admitted / discharged? Hospital course, mention meds given and route, prescriptions, significant lab abnormalities, going to OR and other pertinent info. @ -Discharge 48-year-old female presenting to the ED with complaints of high blood pressure and jaw tightness reminiscent to recent history of STEMI. Laboratory studies reviewed. CBC CMP largely unremarkable. Troponin x 2 undetectable. In light of recent history of STEMI status post stenting patient was offered observation stay to be seen by cardiology. Patient at this time request to be discharged home. She reports that she has a follow-up appointment with Dr. Echavarria in the following week. At this time vital signs stable afebrile. Discharged home in stable condition. Discussed strict return precautions with patient who verbalized agreement. Undiagnosed new problem with uncertain prognosis? @ -No Drug Therapy requiring intensive monitoring for toxicity (Heparin, Nitro, Insulin, Cardizem)? @ -No Were any procedures done? @ -No Diagnosis/symptom? @ -Jaw pain Acute, or Chronic, or Acute on Chronic? @ -Acute Uncomplicated (without systemic symptoms) or Complicated (systemic symptoms)? @ -Uncomplicated Side effects of treatment? @ -No Exacerbation, Progression, or Severe Exacerbation? @ -No Poses a threat to life or bodily function? How? (Chest pain, [place], [place], pneumonia, PE, COPD, DKA, ARF, appy, cholecystitis, CVA, Diverticulitis, Homicidal, Suicidal, threat to staff... and all critical care pts) @ -Unlikely Disposition Clinical Impression: Jaw pain Disposition: HOME SELF-CARE Condition: Good Additional Instructions: Please return to the Emergency Department if symptoms worsen or any other concerns. Please follow-up with your PCP and cardiology. Is patient prescribed a controlled substance at d/c from ED?: No Referrals: Phil Arambula Jr, [Primary Care Provider] - 1-2 days Time of Disposition: 02:39
[2023-12-08 22:41] LABS: Basophils # (A) 0.1 k/uL (0-0.2); Basophils % (A) 1 %; Eosinophils # (A) 0.2 k/uL (0-0.7); Eosinophils % (A) 2 %; HCT 43.9 % (34.0-46.0); HGB 14.8 gm/dL (11.4-16.0); Lymphocytes # (A) 3.6 k/uL (1.0-4.8); Lymphocytes % (A) 31 %; MCH 30.9 pg (25.0-35.0); MCHC 33.8 g/dL (31.0-37.0); MCV 91.4 fL (80.0-100.0); Monocytes # (A) 0.6 k/uL (0-1.0); Monocytes % (A) 5 %; Neutrophils # (A) 7.1 k/uL (1.3-7.7); Neutrophils % (A) 61 %; Platelet Count 149 k/uL (150-450); RDW 13.1 % (11.5-15.5); WBC 11.7 k/uL (3.8-10.6)
[2023-12-08] MEDS: ASPIRIN 81 MG PO STA (22:43)
[2023-12-08 22:46] VITALS: RESP 18; TEMP 98.6
[2023-12-08 22:52] LABS: INR 0.9 (<1.2); Partial Thromboplastin Time 23.7 sec (22.0-30.0); Prothrombin Time 10.4 sec (10.0-12.5)
[2023-12-08 22:57] LABS: ALT 31 U/L (4-34); AST 43 U/L (14-36); African American GFR (CKD) >90 (>60 ml/min/1.73 sqM); Albumin 4.4 g/dL (3.5-5.0); Alkaline Phosphatase 71 U/L (38-126); Anion Gap 12 mmol/L; Blood Urea Nitrogen 15 mg/dL (7-17); Calcium 9.4 mg/dL (8.4-10.2); Carbon Dioxide 21 mmol/L (22-30); Chloride 107 mmol/L (98-107); Glucose 177 mg/dL (74-99); Magnesium 1.8 mg/dL (1.6-2.3); Non-African American GFR(CKD) >90 (>60 ml/min/1.73 sqM); Potassium 3.9 mmol/L (3.5-5.1); Sodium 140 mmol/L (137-145); Total Bilirubin 0.9 mg/dL (0.2-1.3); Total Protein 7.2 g/dL (6.3-8.2)
--- NOTE | 2023-12-08 23:05 | XR ---
EXAM: XR Chest, 2 Views CLINICAL HISTORY: ITS.REASON XR Reason: Chest Pain TECHNIQUE: Frontal and lateral views of the chest. COMPARISON: 10/15/2023. FINDINGS: Lungs: Unremarkable. No consolidative changes or pleural effusions. Pleural space: See above. Heart: Heart is normal in size. No cardiomegaly. Mediastinum: Unremarkable. Normal mediastinal contour. Bones/joints: Osteopenia. No acute fracture. Soft tissues: Soft tissues are unremarkable. Other findings: Hypoaeration. IMPRESSION: 1. Hypoaeration. 2. No active disease. 3. No pleural effusions.
[2023-12-09 02:58] VITALS: BP 124/78; PULSE 75
== END 2023-12-09 02:53 | disposition home or self-care (01) ==
LOC: EC 22:18
DX: R68.84 Jaw pain (principal); I10 Essential (primary) hypertension; E11.9 Type 2 diabetes mellitus without complications; F12.90 Cannabis use, unspecified, uncomplicated; F17.200 Nicotine dependence, unspecified, uncomplicated; Z79.84 Long term (current) use of oral hypoglycemic drugs; Z79.899 Other long term (current) drug therapy; Z88.8 Allergy status to other drugs, medicaments and biological substances
CPT/HCPCS: 36415; 71046; 80053; 83735; 84484; 85025; 85610; 85730; 93005; 99285

== ENCOUNTER → 2024-01-26 | Outpatient (CLI) | payer OTHER ==
[2024-01-26 16:02] LABS: ALT 32 U/L (8-44); AST 35 U/L (13-35); Chol/HDL Ratio 3.39 Ratio; LDL Cholesterol,Calculated 68.4 mg/dL (0.0-131.0)
== END | disposition home or self-care (01) ==
LOC: LABWHC1 11:55
PROVIDERS: ATTEND Internal Medicine Interventional Cardiology
DX: E78.2 Mixed hyperlipidemia (principal)
CPT/HCPCS: 36415; 80061; 84450; 84460

== ENCOUNTER → 2025-04-09 | Outpatient (CLI) | payer OTHER ==
--- NOTE | 2025-04-09 11:40 | MM ---
Reason for Exam: Screening (asymptomatic). Last mammogram was performed 2 year(s) and 2 month(s) ago. Patient History: Menarche at age 11. First Full-Term at age 16. Left ovary removed at age 29. Right ovary removed at age 29. Hysterectomy at age 29. Postmenopausal. 1995, Bilateral Reduction. 2011, Bilateral Implants. Maternal grandmother had breast cancer, age 75. Risk Values: Radha 5 year model risk: 0.7%. NCI Lifetime model risk: 6.5%. Prior Study Comparison: 12/18/2017 Bilateral Diagnostic Mammogram, [facility]. 02/03/2023 Bilateral MG screening mammo implant/CAD, [facility]. Tissue Density: The breasts are almost entirely fatty. Findings: Analyzed By CAD. Bilateral breast implants are redemonstrated. There is no suspicious group of microcalcifications or new suspicious mass in either breast. Overall Assessment: Negative, BI-RAD 1 Management: Screening Mammogram of both breasts in 1 year. . Patient should continue monthly self-breast exams. A clinical breast exam by your physician is recommended on an annual basis. This exam should not preclude additional follow-up of suspicious palpable abnormalities. Note on Radha scores and lifetime risk: 1. A Radha score greater than 3% is considered moderate risk. If this is the case, consider specialist referral to assess eligibility for a risk reducing agent. 2. If overall lifetime risk for the development of breast cancer is 20% or higher, the patient may qualify for future screening with alternating mammogram and breast MRI. [facility], , 04/09/2025 11:37 AM. Electronically signed and approved by: Dung Zuniga M.D.
== END | disposition home or self-care (01) ==
LOC: RADMAMWWP 10:56
PROVIDERS: ATTEND Family Medicine
DX: Z12.31 Encounter for screening mammogram for malignant neoplasm of breast (principal); Z00.00 Encounter for general adult medical examination without abnormal findings; R92.313 Mammographic fatty tissue density, bilateral breasts; Z80.3 Family history of malignant neoplasm of breast; Z98.82 Breast implant status; Z78.0 Asymptomatic menopausal state
CPT/HCPCS: 77063; 77067